=== PATIENT | female | born 1945 | race Caucasian/White ===

== ENCOUNTER 2017-07-18 20:43 | Observation (INO) ==
--- NOTE | 2017-07-18 20:53 | Emergency Department Note ---
Disposition Clinical Impression: Dehydration, Cellulitis of right leg, Frequent falls, Closed fracture of phalanx of right great toe Disposition: Admitted As Inpatient Condition: Good Referrals: Macrina Pacheco DO [Non-Partnered Physician] - Forms: ED Satisfaction Letter Time of Disposition: 23:41 Lower Extremity Injury HPI - General Chief Complaint: ED Extremity Injury, Lower Stated Complaint: right knee pain Time Seen by Provider: 07/18/17 20:45 Source: patient Mode of arrival: EMS Limitations: no limitations Nursing Notes Reviewed: Yes Vital Signs Reviewed: Yes - History of Present Illness HPI Narrative: 72-year-old female who presents via life squad after a fall at home. She states her right leg gave out on her and she fell and injured her right lower back, right knee, right ankle and foot. No head injury or loss consciousness. No neck pain. No chest or abdominal pain. Her daughter arrived and tells us that she has been more confused than usual the last several days. She tells her she fell twice on Sunday. She states she came over today and found her lying on the floor. She is not sure how long she had been there. 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 Mechanism of Injury: fall Context: walking Place: home Pain Severity: severe Improves with: immobilization Worsens with: weight bearing, movement, palpation Associated symptoms: Reports: unable to bear weight - Related Data Home Medications Medication Instructions Recorded Confirmed Aspirin [Lo-Dose Aspirin EC] 81 mg PO DAILY 06/04/17 07/18/17 BuPROPion SR (12 HR) [Wellbutrin 150 mg PO DAILY 06/04/17 07/18/17 SR] Cholecalciferol (Vitamin D3) 1,000 unit PO DAILY 06/04/17 07/18/17 [Vitamin D] Donepezil HCl [Aricept] 5 mg PO HS 06/04/17 07/18/17 Duloxetine HCl [Cymbalta] 60 mg PO DAILY 06/04/17 07/18/17 Furosemide [Lasix] 20 mg PO BID 06/04/17 07/18/17 Gabapentin [Neurontin] 800 mg PO TID 06/04/17 07/18/17 Lisinopril [Zestril] 20 mg PO DAILY 06/04/17 07/18/17 Metoprolol [Lopressor] 25 mg PO BID 06/04/17 07/18/17 OxyCODONE ER (12 HR) [OxyCONTIN] 30 mg PO Q12HR 06/04/17 07/18/17 OxyCODONE/APAP 10/325 [Percocet 1 each PO Q6HR PRN 06/04/17 07/18/17 10/325 MG] Ranitidine HCl [Acid Machinist Mechanic] 150 mg PO BID 06/04/17 07/18/17 Vitamin B Complex [B Complex] 1 each PO DAILY 06/04/17 07/18/17 rOPINIRole [Requip] 1 mg PO HS 06/04/17 07/18/17 Allergies Allergy/AdvReac Type Severity Reaction Status Date / Time pentazocine [From Talalexa] Allergy Vomiting Verified 06/04/17 15:33 All systems ED: reviewed and negative except as stated. Cardiovascular: Denies: chest pain Respiratory: Denies: dyspnea Gastrointestinal: Denies: abdominal pain Musculoskeletal: Reports: as per HPI (Right hip knee ankle and foot pain), back pain. 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 Absent: tenderness - Chest Chest inspection: Present: normal inspection, symmetric chest wall rise - Respiratory Respiratory exam: Present: normal lung sounds bilaterally. Absent: respiratory distress, wheezes - Cardiovascular Cardiovascular exam: Present: regular rate, normal rhythm, normal heart sounds - Abdominal Exam Abdominal exam: Present: soft, Non-Tender, other (Obese) - Extremities Exam Extremities exam: Present: other (Tenderness over right lateral hip, no rotation or shortening of the leg. Range of motion is limited secondary to pain. Tenderness over the anterior right knee. No effusion swelling or bruising. Limited range of motion secondary to pain. Some diffuse right ankle pain with movement, no obvious swelling or bruising. There is moderate swelling bruising and tenderness at the area of the first metatarsal phalangeal joint of the right great toe.) - Back Exam Back exam: Present: tenderness. Absent: CVA tenderness (R), CVA tenderness (L) (Lumbar diffuse) - Neurological Exam Neurological exam: Present: alert, oriented X3, CN II-XII intact. Absent: motor sensory deficit - Psychiatric Psychiatric exam: Present: normal affect, normal mood - Skin Skin exam: Present: warm, dry, intact, erythema (Mild erythema and increased warmth of the distal one third of the right lower leg extending onto the dorsum of the right foot. No open wound.), other (Bruising right foot.) Course - Reevaluation(s) Reevaluation #1: Discussed with Dr. Bolton. Accepted for observation admission. Time: 23:42 Vital Signs Temperature 98.3 F 07/18/17 20:49 Pulse Rate 50 07/18/17 20:49 Respiratory Rate 18 07/18/17 20:49 Blood Pressure 126/56 07/18/17 20:49 O2 Sat by Pulse Oximetry 99 07/18/17 20:49 Temperature 98.3 F 07/18/17 20:49 Pulse Rate 79 07/18/17 23:11 Respiratory Rate 18 07/18/17 23:11 Blood Pressure 127/57 07/18/17 23:11 O2 Sat by Pulse Oximetry 99 07/18/17 23:11 Oxygen Delivery Oxygen Delivery Nasal Cannula Extremity Injury, Lower - MDM Narrative Medical decision making narrative: Differential includes but is not limited to lumbar strain, lumbar compression fracture, right hip contusion, right hip fracture, right knee sprain, right knee fracture, internal derangement right knee, right ankle sprain, right ankle fracture, right foot fracture. On review her old labs her BUN/creatinine are significantly elevated. Her blood pressure has been running in the 110-120 systolic range. Her potassium is mildly elevated. This may be contributing to her falls. She fallen 3 times in the last 3 days. Most recently today when her daughter found her on the floor. She does have some mild erythema of her right lower leg, this could be an early cellulitis. I am going to cover with antibiotics. IV hydration was initiated. No other fractures were found from the falls. She will need a PT OT consult as well. A postop she will be placed on a right foot. - Lab Data Lab results reviewed: Yes I reviewed the patient's lab results. Result diagrams: 07/18/17 21:26 07/18/17 21:26 Lab Results 07/18/17 07/18/17 07/18/17 Range/Units 21:26 21:26 21:26 WBC 4.9 (4.3-11.1) K/mcL RBC 3.16 L (3.82-4.97) M/mcL Hgb 9.1 L (11.5-15.4) g/dL Hct 29.6 L (35.3-44.9) % MCV 93.7 (83.0-100.0) fL MCH 28.8 (28.0-33.3) pg MCHC 30.7 L (31.6-35.5) g/dL RDW 13.4 (11.5-14.5) % Plt Count 230 (140-400) K/mcL MPV 9.4 (9.4-12.4) fL Immature Gran % 0.6 (0-4) % Seg Neutrophils % 67.3 % Lymphocytes % 17.2 % Monocytes % 10.7 % Eosinophils % 3.8 % Basophils % 0.4 % Neutrophils # 3.3 (1.6-8.9) K/mcL Lymphocytes # 0.9 (0.6-4.6) K/mcL Monocytes # 0.5 (0.0-1.3) K/mcL Eosinophils # 0.2 (0.0-0.6) K/mcL Basophils # 0.0 (0.0-0.2) K/mcL Sodium 137 (136-145) mEq/L Potassium 5.4 H (3.5-4.5) mEq/L Chloride 99 (98-109) mEq/L Carbon Dioxide 32 H (19-29) mEq/L BUN 33 H (7-20) mg/dL Creatinine 1.50 H (0.57-1.11) mg/dL Est GFR ( Amer) 41 L (> 60) Est GFR (Non-Af Amer) 34 L (> 60) BUN/Creatinine Ratio 22 (6-26) Glucose 121 H (70-99) mg/dL Calculated Osmolality 293 (280-300) Calcium 9.0 (8.6-10.8) mg/dL Total Bilirubin 0.3 (0.2-1.2) mg/dL AST 20 (5-34) Units/L ALT 13 (0-55) Units/L Alkaline Phosphatase 85 (38-126) Units/L Creatine Kinase (29-168) Units/L Troponin I 0.01 (0-0.03) ng/mL Serum Total Protein 6.2 (6.0-8.3) g/dL Albumin 3.0 L (3.5-5.0) g/dL Globulin 3.2 (2.4-3.5) g/dL Albumin/Globulin Ratio 0.9 L (1.1-2.2) Urine Color (Yellow) Urine Clarity (Clear) Urine pH (5.0-8.0) pH Units Ur Specific [place] (1.010-1.025) Urine Protein (Neg-Trace) mg/dL Urine Glucose (UA) (Normal) mg/dL Urine Ketones (Negative) mg/dL Urine Blood (Negative) Urine Nitrite (Negative) Urine Bilirubin (Negative) Urine Urobilinogen (Normal) mg/dL Ur Leukocyte Esterase (Negative) Ur Culture Indicated? (NO) 07/18/17 07/18/17 Range/Units 21:26 23:21 WBC (4.3-11.1) K/mcL RBC (3.82-4.97) M/mcL Hgb (11.5-15.4) g/dL Hct (35.3-44.9) % MCV (83.0-100.0) fL MCH (28.0-33.3) pg MCHC (31.6-35.5) g/dL RDW (11.5-14.5) % Plt Count (140-400) K/mcL MPV (9.4-12.4) fL Immature Gran % (0-4) % Seg Neutrophils % % Lymphocytes % % Monocytes % % Eosinophils % % Basophils % % Neutrophils # (1.6-8.9) K/mcL Lymphocytes # (0.6-4.6) K/mcL Monocytes # (0.0-1.3) K/mcL Eosinophils # (0.0-0.6) K/mcL Basophils # (0.0-0.2) K/mcL Sodium (136-145) mEq/L Potassium (3.5-4.5) mEq/L Chloride (98-109) mEq/L Carbon Dioxide (19-29) mEq/L BUN (7-20) mg/dL Creatinine (0.57-1.11) mg/dL Est GFR ( Amer) (> 60) Est GFR (Non-Af Amer) (> 60) BUN/Creatinine Ratio (6-26) Glucose (70-99) mg/dL Calculated Osmolality (280-300) Calcium (8.6-10.8) mg/dL Total Bilirubin (0.2-1.2) mg/dL AST (5-34) Units/L ALT (0-55) Units/L Alkaline Phosphatase (38-126) Units/L Creatine Kinase 184 H (29-168) Units/L Troponin I (0-0.03) ng/mL Serum Total Protein (6.0-8.3) g/dL Albumin (3.5-5.0) g/dL Globulin (2.4-3.5) g/dL Albumin/Globulin Ratio (1.1-2.2) Urine Color Yellow (Yellow) Urine Clarity Clear (Clear) Urine pH 5.5 (5.0-8.0) pH Units Ur Specific [place] 1.010 (1.010-1.025) Urine Protein Negative (Neg-Trace) mg/dL Urine Glucose (UA) Normal (Normal) mg/dL Urine Ketones Negative (Negative) mg/dL Urine Blood Negative (Negative) Urine Nitrite Negative (Negative) Urine Bilirubin Negative (Negative) Urine Urobilinogen Normal (Normal) mg/dL Ur Leukocyte Esterase Negative (Negative) Ur Culture Indicated? NO (NO) - Radiology Data Radiology results reviewed: Yes I reviewed the patient's radiology results. Impressions Ankle X-Ray 07/18/17 20:49 IMPRESSION: Fracture of the right big toe. D/ / Miko Hernandez MD / Miko Hernandez MD Interpreting Provider: Miko Hernandez MD Foot X-Ray 07/18/17 20:49 IMPRESSION: Fracture of the right big toe. D/ / Miko Hernandez MD / Miko Hernandez MD Interpreting Provider: Miko Hernandez MD Hip X-Ray 07/18/17 20:49 IMPRESSION: Fracture of the right big toe. D/ / Miko Hernandez MD / Miko Hernandez MD Interpreting Provider: Miko Hernandez MD Knee X-Ray 07/18/17 20:49 IMPRESSION: Fracture of the right big toe. D/ / Miko Hernandez MD / Miko Hernandez MD Interpreting Provider: Miko Hernandez MD Lumbar Spine CT 07/18/17 20:49 IMPRESSION: Spondylosis with no definite fracture. D/ / Brent Cisneros MD / Brent Cisneros MD Interpreting Provider: Brent Cisneros MD Head CT 07/18/17 21:01 IMPRESSION: Small vessel chronic ischemic changes without acute hemorrhage or evidence for acute ischemia. D/ / Brent Cisneros MD / Brent Cisneros MD Interpreting Provider: Brent Cisneros MD Chest X-Ray 07/18/17 21:02 IMPRESSION: No definite acute infiltrate is identified. However, there is asymmetric hyperlucency within the right lung. This may be secondary to mucous plugging on the left. However, neoplasm centrally also is considered. Chest CT is recommended for further evaluation. D/ / Jayden Marks MD / Jayden Marks MD Interpreting Provider: Jayden Marks MD - EKG Data EKG attestation: Yes I reviewed and interpreted this EKG. EKG results narrative: Sinus rhythm, rate of 75, baseline artifact, nonspecific ST-T changes. Rhythm strip shows a sinus rhythm with rate of 75, VT interval 195 ms, QRS 93 ms with no other ectopy as interpreted by me. No old EKG available for comparison.
[2017-07-18 21:34] LABS: Basophils % 0.4 %; Eosinophils # 0.2 K/mcL (0.0-0.6); Eosinophils % 3.8 %; Hematocrit 29.6 % (35.3-44.9); Hemoglobin 9.1 g/dL (11.5-15.4); Immature Granulocytes % 0.6 % (0-4); Lymphocytes # 0.9 K/mcL (0.6-4.6); Lymphocytes % 17.2 %; Mean Corpuscular HGB Conc 30.7 g/dL (31.6-35.5); Mean Corpuscular Hemoglobin 28.8 pg (28.0-33.3); Mean Corpuscular Volume 93.7 fL (83.0-100.0); Mean Platelet Volume 9.4 fL (9.4-12.4); Monocytes # 0.5 K/mcL (0.0-1.3); Monocytes % 10.7 %; Neutrophils # 3.3 K/mcL (1.6-8.9); Platelet Count 230 K/mcL (140-400); Red Blood Count 3.16 M/mcL (3.82-4.97); Red Cell Distribution Width 13.4 % (11.5-14.5); Segmented Neutrophils % 67.3 %
[2017-07-18 21:52] LABS: Albumin/Globulin Ratio 0.9 (1.1-2.2); Bilirubin,Total 0.3 mg/dL (0.2-1.2); Globulin 3.2 g/dL (2.4-3.5); Potassium 5.4 mEq/L (3.5-4.5); Total Protein 6.2 g/dL (6.0-8.3)
[2017-07-18] MEDS ORDERED: 0.9 % Sodium Chloride 500 ML IVC ONE (23:13)
[2017-07-18 23:23] LABS: Bilirubin,Urine Negative (Negative); Blood,Urine Negative (Negative); Clarity,Urine Clear (Clear); Color,Urine Yellow (Yellow); Glucose,Urine (UA) Normal (Normal); Ketones,Urine Negative (Negative); Leukocyte Esterase,Urine Negative (Negative); Nitrite,Urine Negative (Negative); PH,Urine 5.5 pH Units (5.0-8.0); Protein,Urine Negative (Neg-Trace); Urobilinogen,Urine Normal (Normal)
[2017-07-18] MEDS: 0.9 % Sodium Chloride 1,000 ML IVC SCH (23:37)
[2017-07-18] MEDS ORDERED: Vancomycin 1,000 MG in D5% in Water 250 ML IVPB ONE (23:43)
[2017-07-19] MEDS ORDERED: ceFAZolin 1,000 MG in Water for inj. (sterile) 10 ML IVP SCH
[2017-07-19] MEDS ORDERED: 0.9 % Sodium Chloride 1,000 ML IVC SCH (00:03)
[2017-07-19] MEDS ORDERED: Naloxone 0.4 MG/ML INJ IVP PRN (00:03)
[2017-07-19] MEDS: 0.9 % Sodium Chloride 1,000 ML IVC SCH ×3 (00:51→09:59)
[2017-07-19] MEDS: ceFAZolin 1,000 MG in D5% in Water (Mini-Bag+) 100 ML IVPB SCH ×3 (01:15→13:39)
[2017-07-19] MEDS: *HR* OxyCODONE/APAP 10/325 TABLET PO PRN ×4 (01:21→20:20)
[2017-07-19] MEDS: *HR* Enoxaparin 40 MG/0.4 ML SYRINGE SQ SCH (05:13)
[2017-07-19] MEDS: *HR* OxyCODONE ER (12 HR) 10 MG TABLET PO SCH ×2 (05:13→17:59)
[2017-07-19] MEDS ORDERED: Famotidine 20 MG TABLET PO SCH (07:30)
[2017-07-19] MEDS: BuPROPion SR (12 HR) 150 MG TABLET PO SCH (08:09)
[2017-07-19] MEDS: Vitamin B Complex/Vit C/Vit E 1 EACH TABLET PO SCH (08:10)
[2017-07-19] MEDS: Cholecalciferol (D-3) 1,000 UNIT TABLET PO SCH (08:10)
[2017-07-19] MEDS ORDERED: ceFAZolin 1,000 MG in D5% in Water (Mini-Bag+) 100 ML IVPB SCH (08:15)
[2017-07-19] MEDS ORDERED: Aspirin Enteric Coated 81 MG Tablet PO SCH (09:00)
[2017-07-19] MEDS ORDERED: Gabapentin 400 MG CAPSULE PO SCH (09:00)
[2017-07-19 10:34] LABS: Basophils % 0.2 %; Eosinophils # 0.2 K/mcL (0.0-0.6); Eosinophils % 4.7 %; Hematocrit 31.3 % (35.3-44.9); Hemoglobin 9.6 g/dL (11.5-15.4); Lymphocytes % 24.5 %; Mean Corpuscular HGB Conc 30.7 g/dL (31.6-35.5); Mean Corpuscular Hemoglobin 28.5 pg (28.0-33.3); Mean Corpuscular Volume 92.9 fL (83.0-100.0); Mean Platelet Volume 10.3 fL (9.4-12.4); Monocytes # 0.5 K/mcL (0.0-1.3); Monocytes % 11.3 %; Neutrophils # 2.5 K/mcL (1.6-8.9); Platelet Count 234 K/mcL (140-400); Red Blood Count 3.37 M/mcL (3.82-4.97); Red Cell Distribution Width 13.4 % (11.5-14.5); Segmented Neutrophils % 59.3 %
[2017-07-19 10:49] LABS: BUN/Creatinine Ratio 27 (6-26); Blood Urea Nitrogen 22 mg/dL (7-20); Calcium 9.2 mg/dL (8.6-10.8); Carbon Dioxide 28 mEq/L (19-29); Chloride 104 mEq/L (98-109); Glucose 91 mg/dL (70-99); Osmolality,Calculated 293 (280-300); Potassium 4.9 mEq/L (3.5-4.5); Sodium 140 mEq/L (136-145); eGFR For African Americans > 60 (> 60); eGFR For Non-African Americans > 60 (> 60)
--- NOTE | 2017-07-19 12:28 | Internal Med History&Physical ---
Date of Encounter: 07/19/17 Time of Encounter: 11:55 Assessment and Plan (1) Dehydration Current visit: Yes Status: Acute Suspect secondary to diuretic use. Lasix has been held and IV fluids will be given. (2) Anemia Current visit: Yes Status: Acute Will order anemia testing Qualifiers: Anemia type: unspecified type Qualified Code(s): D64.9 - Anemia, unspecified (3) Cellulitis of right leg Current visit: Yes Status: Acute Possible venous stasis instead of cellulitis. Antibiotics were ordered through emergency room. I will reassess in a.m. (4) Frequent falls Current visit: Yes Status: Acute She will have PT and OT evaluation. (5) Closed fracture of phalanx of right great toe Current visit: Yes Status: Acute We will give analgesics. Qualifiers: Encounter type: initial encounter Phalanx: proximal Fracture alignment: nondisplaced Qualified Code(s): S92.414A - Nondisplaced fracture of proximal phalanx of right great toe, initial encounter for closed fracture Internal Medicine - H&P: HPI Chief complaint: Fall and toe fracture Admitted From: Emergency Dept Plans for Post Hospital Care: Home History of present illness: Ms. Mclean is a 72 year old female who came to emergency room after she sustained a fall while walking at home. She states her right leg gave out and she fell to the floor. There was no head trauma or loss of consciousness. She was evaluated in emergency room found to have a right great toe fracture,anemia and azotemia. She was admitted to [facility] for ongoing care needs. She reports she has had multiple falls at home over the preceding months. She has been told to use a walker but does not use it regularly. She has not fallen when she does use the walker. Her musk skeletal history is significant for DJD. She reports having 10 back surgeries and a foot surgery. She denies known gout or other bone joint or muscle disorders. Past Med Surg Social Fam HX - Past Medical History Medical history: asthma, COPD, coronary artery disease, GERD, hyperlipidemia, hypertension, other (Chronic pain) Psychiatric history: depression - Past Surgical History Surgical History: angioplasty/stent, appendectomy, cancer surgery, hysterectomy , orthopedic, other (Foot and back surgeries) - Social History Smoking Status: Former smoker Smokeless Tobacco Status: No Alcohol use: none Drug use: none Internal Medicine - H&P: Meds Aspirin [Lo-Dose Aspirin EC] 81 mg PO DAILY 06/04/17 [History] BuPROPion SR (12 HR) [Wellbutrin SR] 150 mg PO DAILY 06/04/17 [History] Cholecalciferol (Vitamin D3) [Vitamin D] 1,000 unit PO DAILY 06/04/17 [History] Donepezil HCl [Aricept] 5 mg PO HS 06/04/17 [History] Duloxetine HCl [Cymbalta] 60 mg PO DAILY 06/04/17 [History] Furosemide [Lasix] 20 mg PO BID 06/04/17 [History] Gabapentin [Neurontin] 800 mg PO TID 06/04/17 [History] Lisinopril [Zestril] 20 mg PO DAILY 06/04/17 [History] Metoprolol [Lopressor] 25 mg PO BID 06/04/17 [History] OxyCODONE ER (12 HR) [OxyCONTIN] 30 mg PO Q12HR 06/04/17 [History] OxyCODONE/APAP 10/325 [Percocet 10/325 MG] 1 each PO Q6HR PRN 06/04/17 [History] Ranitidine HCl [Acid Creel Hand] 150 mg PO BID 06/04/17 [History] Vitamin B Complex [B Complex] 1 each PO DAILY 06/04/17 [History] rOPINIRole [Requip] 1 mg PO HS 06/04/17 [History] 3 Allergy/AdvReac Type Severity Reaction Status Date / Time pentazocine [From Efarín] Allergy Vomiting Verified 06/04/17 15:33 All Systems PM: A 10-system review of systems was performed and is negative for pertinent findings except as documented above in the HPI. Review of systems: Gen.: She states her weight has been stable past few months Cardiovascular: She has history of hypertension but denies AK heart failure DVT or pulmonary embolus. She states she has an occasional chest pain at rest and walking but it is not predictable. She reports she has had a heart valve surgery in the past but does not know details. Respiratory: She smoked from age [age] up to 2 packs per day. She has a diagnosis of COPD and wears oxygen 24/7 at home. She denies testing for ALEXIS GI: She denies disorders of her liver gallbladder or exocrine pancreas : She has had urinary tract infections in the past. She denies other kidney or bladder disorders Neurologic: She is been diagnosed with early dementia. She has neuropathy of uncertain etiology. She denies large distribution strokes or seizures. Endocrine: She denies diabetes or thyroid disease but has history of hyperlipidemia. She does not use medication at this time. She has restless leg syndrome. Hematology/oncology: She has had anemia in the past. She had hysterectomy for uterine cancer in the past which was curative. She denies other internal malignancies Psychiatric: She has depression but denies anxiety or other mental health issues Musk skeletal: As per history of present illness - Constitutional Vitals: Temp Pulse Resp BP Pulse Ox 98.5 F 64 18 105/67 96 07/19/17 10:00 07/19/17 10:00 07/19/17 10:00 07/19/17 10:00 07/19/17 10:00 Exam: Gen.: She is well-developed overweight female lying in bed who appears in no acute distress at present time HEENT: Head is atraumatic and normocephalic. Eyes: EOMI. There is no scleral icterus. She is wearing dark glasses stating she had cataract surgery a few days ago and the light hurts her eyes. Mouth: Mucosa is moist. Neck: Supple and nontender. There is no thyromegaly or adenopathy noted. Heart: Regular without murmurs gallops or ectopics Lungs: No wheezes or crackles are heard. Abdomen: Soft and nontender. No masses or guarding noted. Activities: She has 1+ edema of the lower anterior shins and dorsum of the feet bilaterally. She has ecchymosis of the right great toe area. Dorsalis pedis and posttibial pulses are nonpalpable. Neurologic: Mental status: She is talkative and seems to be a reliable historian. Cranial nerves: Smile is symmetric. Forehead wrinkles bilaterally. Tongue protrudes midline. EOMI. Motor: There is no pronator drift. Cerebellar: Finger to nose is intact bilaterally. Skin: Warm and dry Internal Med - H&P Results - Labs CBC & Chem 7: 07/19/17 10:18 07/19/17 10:18 Labs: Short CBC 07/19/17 Range/Units 10:18 WBC 4.2 L (4.3-11.1) K/mcL Hgb 9.6 L (11.5-15.4) g/dL Hct 31.3 L (35.3-44.9) % Plt Count 234 (140-400) K/mcL Neutrophils # 2.5 (1.6-8.9) K/mcL BMP 07/19/17 10:18 Sodium 140 Potassium 4.9 H Chloride 104 Carbon Dioxide 28 BUN 22 H D Creatinine 0.83 Glucose 91 Calcium 9.2
[2017-07-19 14:56] LABS: Folate 12.5 ng/mL (3.0-16.0)
[2017-07-19] MEDS: Famotidine 20 MG TABLET PO SCH (15:29)
[2017-07-19] MEDS: Gabapentin 300 MG CAPSULE PO SCH ×2 (15:29→20:18)
[2017-07-19] MEDS: rOPINIRole 1 MG TABLET PO SCH (20:17)
[2017-07-20] MEDS: ceFAZolin 1,000 MG in D5% in Water (Mini-Bag+) 100 ML IVPB SCH ×2 (00:23→11:18)
[2017-07-20] MEDS: *HR* OxyCODONE/APAP 10/325 TABLET PO PRN ×3 (03:21→21:54)
[2017-07-20] MEDS: *HR* Enoxaparin 40 MG/0.4 ML SYRINGE SQ SCH (06:03)
[2017-07-20] MEDS: *HR* OxyCODONE ER (12 HR) 10 MG TABLET PO SCH ×2 (06:04→17:22)
[2017-07-20 07:19] LABS: Basophils % 0.3 %; Eosinophils # 0.2 K/mcL (0.0-0.6); Eosinophils % 5.5 %; Hematocrit 28.8 % (35.3-44.9); Hemoglobin 8.8 g/dL (11.5-15.4); Immature Granulocytes % 0.3 % (0-4); Lymphocytes # 0.9 K/mcL (0.6-4.6); Lymphocytes % 28.4 %; Mean Corpuscular HGB Conc 30.6 g/dL (31.6-35.5); Mean Corpuscular Hemoglobin 28.5 pg (28.0-33.3); Mean Corpuscular Volume 93.2 fL (83.0-100.0); Mean Platelet Volume 10.1 fL (9.4-12.4); Monocytes # 0.4 K/mcL (0.0-1.3); Monocytes % 11.9 %; Neutrophils # 1.8 K/mcL (1.6-8.9); Platelet Count 224 K/mcL (140-400); Red Blood Count 3.09 M/mcL (3.82-4.97); Red Cell Distribution Width 13.3 % (11.5-14.5); Segmented Neutrophils % 53.6 %
[2017-07-20] MEDS: Cholecalciferol (D-3) 1,000 UNIT TABLET PO SCH (08:16)
[2017-07-20] MEDS: Famotidine 20 MG TABLET PO SCH ×2 (08:16→17:22)
[2017-07-20] MEDS: Vitamin B Complex/Vit C/Vit E 1 EACH TABLET PO SCH (08:17)
[2017-07-20] MEDS: Gabapentin 300 MG CAPSULE PO SCH ×3 (08:17→21:50)
[2017-07-20 08:31] LABS: BUN/Creatinine Ratio 20 (6-26); Blood Urea Nitrogen 14 mg/dL (7-20); Calcium 9.2 mg/dL (8.6-10.8); Carbon Dioxide 27 mEq/L (19-29); Chloride 105 mEq/L (98-109); Glucose 91 mg/dL (70-99); Osmolality,Calculated 286 (280-300); Potassium 4.8 mEq/L (3.5-4.5); Sodium 138 mEq/L (136-145); eGFR For African Americans > 60 (> 60); eGFR For Non-African Americans > 60 (> 60)
--- NOTE | 2017-07-20 09:31 | Electrocardiograph Report ---
[address] [id number] Test Date: 2017-07-18 Pat Name: Krishan Mclean Department: [id number] Room: [facility] Gender: F Solution Designer: Mica : 1945 Requested By: Felice Garza Order Number: [id number] Reading MD: Stormy Levin Measurements Intervals [place] Rate: 75 P: 79 LA: 195 QRS: 46 QRSD: 93 T: 56 QT: 334 QTc: 364 Interpretive Statements SINUS RHYTHM ARTIFACT LIMITS INTERPRETATION Electronically Signed On 07-20-2017 9:29:44 EST by Stormy Levin
[2017-07-20] MEDS: BuPROPion SR (12 HR) 150 MG TABLET PO SCH (11:10)
--- NOTE | 2017-07-20 12:24 | Internal Med Progress Note ---
Date of Encounter: 07/20/17 Time of Encounter: 12:15 - Assessment and plan (1) Dehydration Current Visit: Yes Status: Acute Assessment and plan: July 20. Resolved. We will discontinue IV fluids. Will give low dose Bumex for edema. Anticipate discharge home tomorrow. (2) Anemia Current Visit: Yes Status: Acute Assessment and plan: July 20. Anemia testing showed iron 34, transferrin saturation 8%, transferrin 287, ferritin 30, B12 340, and folate 12.5. Will start ferrous sulfate with vitamin C. Qualifiers: Anemia type: unspecified type Qualified Code(s): D64.9 - Anemia, unspecified (3) Cellulitis of right leg Current Visit: Yes Status: Acute Assessment and plan: July 20. The erythema has resolved. I suspect it was more venous stasis than cellulitis. We will discontinue antibiotics. (4) Frequent falls Current Visit: Yes Status: Acute Assessment and plan: July 20. Continue PT and OT evaluation. (5) Closed fracture of phalanx of right great toe Current Visit: Yes Status: Acute Assessment and plan: July 20. Continue analgesics. Qualifiers: Encounter type: initial encounter Phalanx: proximal Fracture alignment: nondisplaced Qualified Code(s): S92.414A - Nondisplaced fracture of proximal phalanx of right great toe, initial encounter for closed fracture (6) Elevated brain natriuretic peptide (BNP) level Current Visit: Yes Status: Acute Assessment and plan: July 20. Continue Lopressor and start Bumex. - Subjective Interval history: July 20. She has no new complaints and feels better. Reports having tremors earlier this morning but they have resolved. - Constitutional Vitals: Temp Pulse Resp BP Pulse Ox 97.9 F 73 18 133/65 98 07/20/17 07:09 07/20/17 07:09 07/20/17 07:09 07/20/17 07:09 07/20/17 07:09 Exam: She is sitting in a chair at bedside resting comfortably. Her affect is bright and cheerful. There is no residual erythema for lower legs. She has 1-2+ edema dorsum of the feet and lower anterior shins. I reviewed her medications and lab results. Internal Medicine: Result - Labs CBC & Chem 7: 07/20/17 07:00 07/20/17 07:00 Labs: Short CBC 07/20/17 Range/Units 07:00 WBC 3.3 L (4.3-11.1) K/mcL Hgb 8.8 L (11.5-15.4) g/dL Hct 28.8 L (35.3-44.9) % Plt Count 224 (140-400) K/mcL Neutrophils # 1.8 (1.6-8.9) K/mcL BMP 07/20/17 07:00 Sodium 138 Potassium 4.8 H Chloride 105 Carbon Dioxide 27 BUN 14 Creatinine 0.71 Glucose 91 Calcium 9.2 Consult Discharge Plan - Plan Referrals: NONE,PCP [Primary Care Provider] - 1 week
[2017-07-20] MEDS: Bumetanide 1 MG TABLET PO SCH (12:54)
[2017-07-20] MEDS: rOPINIRole 1 MG TABLET PO SCH (21:50)
[2017-07-21] MEDS: *HR* OxyCODONE/APAP 10/325 TABLET PO PRN (04:14)
[2017-07-21] MEDS: *HR* OxyCODONE ER (12 HR) 10 MG TABLET PO SCH (05:47)
[2017-07-21] MEDS: *HR* Enoxaparin 40 MG/0.4 ML SYRINGE SQ SCH (05:47)
[2017-07-21] MEDS ORDERED: Ascorbic Acid 500 MG TABLET PO SCH (06:30)
[2017-07-21 06:54] VITALS: BP 117/66
[2017-07-21] MEDS: Bumetanide 1 MG TABLET PO SCH (08:41)
[2017-07-21] MEDS: Gabapentin 300 MG CAPSULE PO SCH (08:41)
[2017-07-21] MEDS: Famotidine 20 MG TABLET PO SCH (08:41)
[2017-07-21] MEDS: Vitamin B Complex/Vit C/Vit E 1 EACH TABLET PO SCH (08:41)
[2017-07-21] MEDS: BuPROPion SR (12 HR) 150 MG TABLET PO SCH (08:42)
[2017-07-21] MEDS: Cholecalciferol (D-3) 1,000 UNIT TABLET PO SCH (08:42)
--- NOTE | 2017-07-21 08:50 | Discharge Summary ---
Date of Encounter: 07/21/17 Time of Encounter: 08:35 - Discharge Diagnosis (1) Dehydration Priority: Primary Status: Resolved (2) Anemia Priority: Secondary Status: Acute Qualifiers: Anemia type: iron deficiency Iron deficiency anemia type: unspecified iron deficiency Qualified Code(s): D50.9 - Iron deficiency anemia, unspecified (3) Cellulitis of right leg Priority: Secondary Status: Resolved (4) Frequent falls Priority: Secondary Status: Acute (5) Closed fracture of phalanx of right great toe Priority: Secondary Status: Acute Qualifiers: Encounter type: initial encounter Phalanx: proximal Fracture alignment: nondisplaced Qualified Code(s): S92.414A - Nondisplaced fracture of proximal phalanx of right great toe, initial encounter for closed fracture (6) Elevated brain natriuretic peptide (BNP) level Priority: Secondary Status: Acute - Discharge Medications Prescriptions: Ascorbic Acid [Vitamin C] 500 mg PO DAILY@0630 #30 tablet Bumetanide [Bumex] 1 mg PO DAILY #30 tablet Ferrous Sulfate 325 mg PO DAILY@0630 #30 tablet Home Medications: BuPROPion SR (12 HR) [Wellbutrin SR] 150 mg PO DAILY 06/04/17 [History] Cholecalciferol (Vitamin D3) [Vitamin D3] 1,000 unit PO DAILY 06/04/17 [History] Donepezil HCl [Aricept] 5 mg PO HS 06/04/17 [History] Duloxetine HCl [Cymbalta] 60 mg PO DAILY 06/04/17 [History] Metoprolol [Lopressor] 25 mg PO BID 06/04/17 [History] OxyCODONE ER (12 HR) [OxyCONTIN] 30 mg PO Q12HR 06/04/17 [History] OxyCODONE/APAP 10/325 [Percocet 10/325 MG] 1 each PO Q6HR PRN 06/04/17 [History] Ranitidine HCl [Acid Trench Pipe Layer Helper] 150 mg PO BID 06/04/17 [History] Vitamin B Complex [B Complex] 1 each PO DAILY 06/04/17 [History] rOPINIRole [Requip] 1 mg PO HS 06/04/17 [History] Ascorbic Acid [Vitamin C] 500 mg PO DAILY@0630 #30 tablet 07/21/17 [Rx] Aspirin [Lo-Dose Aspirin EC] 81 mg PO Q48H #0 07/21/17 [Rx] Bumetanide [Bumex] 1 mg PO DAILY #30 tablet 07/21/17 [Rx] Ferrous Sulfate 325 mg PO DAILY@0630 #30 tablet 07/21/17 [Rx] Gabapentin [Neurontin] 800 mg PO BID #0 07/21/17 [Rx] Allergies/Adverse Reactions: 3 Allergy/AdvReac Type Severity Reaction Status Date / Time pentazocine [From Talwin] Allergy Vomiting Verified 06/04/17 15:33 Date of admission: 07/18/17 23:52 Primary care physician: Macrina Pacheco D.O. Consults: 07/19/17 10:32 Consult to Occupational Therapy [CONS] Routine Comment: Evaluate, develop and implement POC Reason for Consult: weakness - Patient Status Disposition: Home, Self-Care Condition: Good Functional capacity at discharge: uses cane/walker Overall status at discharge: patient is progressing back to baseline - Discharge Instructions Follow Up With: Macrina Pacheco DO [Non-Partnered Physician] - 1 week - Diet and Activity Activity: ambulate only with your walker, resume usual activities as tolerated Diet: advance to your usual diet Hospital course: Ms. Mclean is a 72 year old female who came to emergency room after she sustained a fall while walking at home. She states her right leg gave out and she fell to the floor. There was no head trauma or loss of consciousness. She was evaluated in emergency room found to have a right great toe fracture,anemia and azotemia. She was admitted to [facility] floor for ongoing care needs. Initial orders written by the emergency room physician. I saw her on July 19 and performed the history and physical. Her diuretics and ACEI were held. She was given IV fluids. Azotemia resolved with BUN and creatinine decreasing to 14 and 0.71 respectively by July 20. Her potassium improved to 4.8. She will remain off ACEI at discharge. I will change her from Lasix to Bumex 1 mg daily to help with edema. Bn peptide returned elevated at 410. Her PCP can monitor labs as needed. Anemia testing showed iron 34, transferrin saturation 8%, transferrin 287, ferritin 30, B12 340, and folate 12.5. Her aspirin dose was decreased to 81 mg every other day. She will be started on ferrous sulfate with vitamin C at discharge. She will be discharged home today and follow with her PCP Dr. Macrina Pacheco within 1 week. - Time Spent with Patient Total time spent providing and/or coordinating discharge services: - Constitutional Vitals: Temp Pulse Resp BP Pulse Ox 98.5 F 75 17 117/66 99 07/21/17 06:53 07/21/17 06:53 07/21/17 06:53 07/21/17 06:53 07/21/17 06:53
== END 2017-07-21 11:25 | disposition home or self-care (01) ==
LOC: EMEROOPIK 20:43 → INPPIK 20:43
PROVIDERS: ADMIT Internal Medicine; ATTEND Internal Medicine

== ENCOUNTER 2018-12-30 15:50 | Inpatient (IN) ==
--- NOTE | 2018-12-30 16:32 | Emergency Department Note ---
Disposition Clinical Impression: Cellulitis Qualifiers: Site of cellulitis: extremity Site of cellulitis of extremity: lower extremity Laterality: unspecified laterality Qualified Code(s): L03.119 - Cellulitis of unspecified part of limb Disposition: Admitted As Inpatient Condition: Fair Referrals: Macrina Pacheco DO [Primary Care Provider] - Forms: ED Satisfaction Letter, Work/School Release Time of Disposition: 19:15 General Adult HPI - General Chief complaint: ED General Medical Stated complaint: reddness to bilateral lower ext Time Seen by Provider: 12/30/18 16:00 Source: patient, family, EMS Mode of arrival: EMS Limitations: no limitations Nursing Notes Reviewed: Yes Vital Signs Reviewed: Yes - History of Present Illness HPI Narrative: Patient presents to the ED complaining of lower extremity redness, swelling and weeping. She states her legs have been red for at least a month or more but over the past few days they have become more swollen and began seeping clear liquid and they are more painful. She denies any fever or chills. No chest pain or shortness of breath beyond her mild dyspnea at baseline. She wears 3 L of oxygen at all times and has for several years. No nausea or vomiting. No other rashes or skin problems. History is notable for dementia, COPD, CAD, hypertension and high cholesterol. She lives with family. She does take a water pill. She is unsure of a history of CHF. Pain Scale: 7 - Related Data Home Medications Medication Instructions Recorded Confirmed Cholecalciferol (Vitamin D3) 1,000 unit PO DAILY 06/04/17 12/30/18 [Vitamin D3] Duloxetine HCl [Cymbalta] 60 mg PO DAILY 06/04/17 12/30/18 OxyCODONE/APAP 10/325 [Percocet 1 tab PO Q6HR PRN 06/04/17 03/20/18 10/325 MG] Ranitidine HCl [Acid Frame Hand] 150 mg PO BID 06/04/17 12/30/18 Atorvastatin Calcium [Lipitor] 20 mg PO HS 03/20/18 12/30/18 Gabapentin [Neurontin] 800 mg PO TID 03/20/18 12/30/18 NALOXONE 4 MG Nasal [place] [Narcan] 4 mg NS AD 03/20/18 12/30/18 Nitroglycerin [Nitrostat] 0.4 mg SL Q5M PRN MDD [id number] CALL 03/20/18 12/30/18 911 Nortriptyline HCl 75 mg PO DAILY 03/20/18 12/30/18 Omeprazole [PriLOSEC] 40 mg PO DAILY 03/20/18 12/30/18 Tizanidine HCl 4 mg PO Q8H 03/20/18 12/30/18 Docusate [Colace] 100 mg PO TID 12/30/18 12/30/18 Furosemide [Lasix] 20 mg PO BID 12/30/18 12/30/18 Memantine HCl 10 mg PO BID 12/30/18 12/30/18 Oxycodone HCl [Roxybond] 30 mg PO TID 12/30/18 12/30/18 Potassium Chloride [K-Tab ER] 10 meq PO 12/30/18 PredniSONE [Deltasone] 20 mg PO DAILY 12/30/18 12/30/18 Previous Rx's Medication Instructions Recorded Aspirin [Lo-Dose Aspirin EC] 81 mg PO Q48H #0 07/21/17 Allergies Allergy/AdvReac Type Severity Reaction Status Date / Time pentazocine [From Talwin] AdvReac Vomiting Verified 03/20/18 09:07 Constitutional: Denies: fever, chills, weakness, weight change Eyes: Denies: eye pain, eye discharge, vision change ENT ED: Denies: ear pain, throat pain, dental pain, hearing loss, epistaxis, congestion, dysphagia Cardiovascular: Reports: edema. Denies: chest pain, palpitations, dyspnea on exertion, syncope Respiratory: Reports: dyspnea (mild, chronic). Denies: cough, wheezes, hemoptysis, stridor Gastrointestinal: Denies: abdominal pain, nausea, vomiting, diarrhea, constipation, hematemesis, melena, hematochezia Genitourinary: Denies: dysuria, frequency, hematuria, discharge Musculoskeletal: Denies: back pain, neck pain, arthralgia, myalgia Integumentary: Denies: rash, abrasion, lesions Neurological: Denies: headache, weakness, numbness, paresthesias, confusion, abnormal gait, vertigo Psychiatric: Denies: anxiety, depression, suicidal thoughts, homicidal thoughts, auditory hallucinations, visual hallucinations Endocrine: Denies: fatigue Hematological/Lymphatic: Denies: easy bleeding, easy bruising Allergic/Immunologic: Denies: facial swelling, urticaria Past Medical History - Past Medical History Medical history: Reports: asthma, COPD, coronary artery disease, dementia, GERD, hyperlipidemia, hypertension, other Surgical history: Reports: angioplasty/stent, appendectomy, cancer surgery, hysterectomy, orthopedic, other Psychiatric history: Reports: 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 - Social History Smoking Status: Former smoker Smokeless Tobacco Status: No Alcohol use: Reports: none Drug use: Reports: none, unknown Physical Exam - General Limitations: no limitations General appearance: alert, in no apparent distress, obese - Head Head exam: atraumatic, normocephalic, normal inspection - Eye Eye exam: Present: normal appearance, PERRL, EOMI - ENT ENT exam: normal exam, normal oropharynx, mucous membranes moist - Neck Neck exam: Present: normal inspection, full ROM, trachea midline - Chest Chest inspection: Present: normal inspection, symmetric chest wall rise - Respiratory Respiratory exam: Present: normal lung sounds bilaterally - Cardiovascular Cardiovascular exam: Present: regular rate, normal rhythm, normal heart sounds - Abdominal Exam Abdominal exam: Present: soft, Non-Tender. Absent: tenderness, distention, guarding, rebound, rigidity - Extremities Exam Extremities exam: Present: normal inspection, full ROM, normal capillary refill. Absent: tenderness, pedal edema (2+ to knees) - Expanded Lower Extremity Exam Knee exam: Present: normal inspection, full ROM Lower leg exam: Present: tenderness, erythema (with seeping blisters on R) Ankle exam: Present: normal inspection, full ROM Foot/toe exam: Present: normal inspection, full ROM Neurovascular/Tendon exam: Absent: motor deficit, sensory deficit, tendon deficit - Back Exam Back exam: Present: normal inspection, full ROM. Absent: tenderness - Neurological Exam Neurological exam: Present: alert, oriented X3 - Psychiatric Psychiatric exam: Present: normal affect, normal mood - Skin Skin exam: Present: warm, dry, intact, normal color Course Course Narrative: His presents to the ED with worsening bilateral lower extremity swelling along with redness and weeping with a history of lower actually edema on diuretics, unclear history of CHF. On arrival she is afebrile, hemodynamic stable and nont oxic in appearance. Lower extremities are red and warm and weeping with pitting edema. Lungs are clear to auscultation with no crackles or wheezing. Will obtain laboratory studies in addition to chest x-ray to rule out component of CHF in addition to her cellulitis. - Reevaluation(s) Reevaluation #1: Chest x-ray did not show any evidence of CHF and lab work was unremarkable including a negative troponin and negative BNP. Discussed with patient admissi on for IV antibiotics for her cellulitis that she is in agreement. I spoke to the hospital some call, Dr. Bolton who has agreed to accept the patient. Vital Signs Temperature 97.2 F L 12/30/18 15:52 Pulse Rate 93 12/30/18 15:52 Respiratory Rate 17 12/30/18 15:52 Blood Pressure 110/89 12/30/18 15:52 O2 Sat by Pulse Oximetry 97 12/30/18 15:52 Temperature 97.2 F L 12/30/18 15:52 Pulse Rate 89 12/30/18 18:43 Respiratory Rate 15 12/30/18 18:43 Blood Pressure 130/62 12/30/18 18:43 O2 Sat by Pulse Oximetry 95 12/30/18 18:43 Oxygen Delivery Oxygen Delivery Nasal Cannula Medical Decision Making - Medical Records Medical records reviewed: Yes I reviewed the patient's medical records. - Lab Data Lab results reviewed: Yes I reviewed the patient's lab results. Result diagrams: 12/30/18 16:40 12/30/18 16:40 Lab Results 12/30/18 12/30/18 12/30/18 Range/Units 16:40 16:40 16:40 WBC 6.2 (4.3-11.1) K/mcL RBC 3.89 (3.82-4.97) M/mcL Hgb 9.6 L (11.5-15.4) g/dL Hct 32.3 L (35.3-44.9) % MCV 83.0 (83.0-100.0) fL MCH 24.7 L (28.0-33.3) pg MCHC 29.7 L (31.6-35.5) g/dL RDW 16.8 H (11.5-14.5) % Plt Count 347 (140-400) K/mcL MPV 10.7 (9.4-12.4) fL Immature Gran % 0.3 (0-4) % Seg Neutrophils % 65.5 % Lymphocytes % 22.4 % Monocytes % 8.6 % Eosinophils % 2.9 % Basophils % 0.3 % Neutrophils # 4.0 (1.6-8.9) K/mcL Lymphocytes # 1.4 (0.6-4.6) K/mcL Monocytes # 0.5 (0.0-1.3) K/mcL Eosinophils # 0.2 (0.0-0.6) K/mcL Basophils # 0.0 (0.0-0.2) K/mcL Platelet Estimate Normal (Normal) Anisocytosis 1+ A (Not Present) Sodium 135 L (136-145) mEq/L Potassium 4.2 (3.5-5.1) mEq/L Chloride 95 L (98-107) mEq/L Carbon Dioxide 36 H (23-29) mEq/L BUN 11 (8-23) mg/dL Creatinine 0.78 (0.60-1.20) mg/dL Est GFR ( Amer) > 60 (> 60) Est GFR (Non-Af Amer) > 60 (> 60) BUN/Creatinine Ratio 14 (6-26) Glucose 206 H (70-105) mg/dL Calculated Osmolality 285 (280-300) Lactic Acid 2.0 (0.5-2.2) mmol/L Calcium 9.0 (8.6-10.3) mg/dL Troponin I (< 0.04) ng/mL B-Natriuretic Peptide (Less than 100) pg/mL 12/30/18 12/30/18 Range/Units 16:40 16:40 WBC (4.3-11.1) K/mcL RBC (3.82-4.97) M/mcL Hgb (11.5-15.4) g/dL Hct (35.3-44.9) % MCV (83.0-100.0) fL MCH (28.0-33.3) pg MCHC (31.6-35.5) g/dL RDW (11.5-14.5) % Plt Count (140-400) K/mcL MPV (9.4-12.4) fL Immature Gran % (0-4) % Seg Neutrophils % % Lymphocytes % % Monocytes % % Eosinophils % % Basophils % % Neutrophils # (1.6-8.9) K/mcL Lymphocytes # (0.6-4.6) K/mcL Monocytes # (0.0-1.3) K/mcL Eosinophils # (0.0-0.6) K/mcL Basophils # (0.0-0.2) K/mcL Platelet Estimate (Normal) Anisocytosis (Not Present) Sodium (136-145) mEq/L Potassium (3.5-5.1) mEq/L Chloride (98-107) mEq/L Carbon Dioxide (23-29) mEq/L BUN (8-23) mg/dL Creatinine (0.60-1.20) mg/dL Est GFR ( Amer) (> 60) Est GFR (Non-Af Amer) (> 60) BUN/Creatinine Ratio (6-26) Glucose (70-105) mg/dL Calculated Osmolality (280-300) Lactic Acid (0.5-2.2) mmol/L Calcium (8.6-10.3) mg/dL Troponin I < 0.03 (< 0.04) ng/mL B-Natriuretic Peptide 50 (Less than 100) pg/mL - Radiology Data Radiology results reviewed: Yes I reviewed the patient's radiology results. ITS Impressions Chest X-Ray 12/30/18 16:22 IMPRESSION: No evidence of CHF D/ / Mich Zaidi MD / Mich Zaidi MD Interpreting Provider: Mich Zaidi MD - EKG Data EKG #1 EKG attestation: Yes I reviewed and interpreted this EKG. EKG shows normal: sinus rhythm Rate: normal Rhythm: NSR [place]/QRS: normal Interpretation: no acute changes, normal EKG
[2018-12-30 17:06] LABS: Basophils % 0.3 %; Eosinophils # 0.2 K/mcL (0.0-0.6); Eosinophils % 2.9 %; Hematocrit 32.3 % (35.3-44.9); Hemoglobin 9.6 g/dL (11.5-15.4); Immature Granulocytes % 0.3 % (0-4); Lymphocytes # 1.4 K/mcL (0.6-4.6); Lymphocytes % 22.4 %; Mean Corpuscular HGB Conc 29.7 g/dL (31.6-35.5); Mean Corpuscular Hemoglobin 24.7 pg (28.0-33.3); Mean Platelet Volume 10.7 fL (9.4-12.4); Monocytes # 0.5 K/mcL (0.0-1.3); Monocytes % 8.6 %; Platelet Count 347 K/mcL (140-400); Red Blood Count 3.89 M/mcL (3.82-4.97); Red Cell Distribution Width 16.8 % (11.5-14.5); Segmented Neutrophils % 65.5 %; White Blood Count 6.2 K/mcL (4.3-11.1)
[2018-12-30 17:24] LABS: BUN/Creatinine Ratio 14 (6-26); Blood Urea Nitrogen 11 mg/dL (8-23); Carbon Dioxide 36 mEq/L (23-29); Chloride 95 mEq/L (98-107); Glucose 206 mg/dL (70-105); Osmolality,Calculated 285 (280-300); Potassium 4.2 mEq/L (3.5-5.1); Sodium 135 mEq/L (136-145); eGFR For African Americans > 60 (> 60); eGFR For Non-African Americans > 60 (> 60)
[2018-12-30 17:30] LABS: Anisocytosis 1+ (Not Present); Platelet Estimate Normal (Normal)
[2018-12-30] MEDS ORDERED: *HR* OxyCODONE/APAP 10/325 TABLET PO ONE (18:28)
[2018-12-30] MEDS ORDERED: Naloxone 0.4 MG/ML INJ IVP PRN ×2 (19:26→19:53)
[2018-12-30] MEDS ORDERED: Nitroglycerin 0.4 MG TAB.SUBL SL PRN (19:53)
[2018-12-30] MEDS: tiZANidine 4 MG TABLET PO SCH (21:15)
[2018-12-30] MEDS: Aspirin Enteric Coated 81 MG Tablet PO SCH (21:15)
[2018-12-30] MEDS: *HR* OxyCODONE Immed Rel 15 MG TABLET PO SCH (21:15)
[2018-12-30] MEDS: Furosemide 20 MG TABLET PO SCH (21:15)
[2018-12-30] MEDS: Famotidine 20 MG TABLET PO SCH (21:15)
[2018-12-30] MEDS: Gabapentin 400 MG CAPSULE PO SCH (21:15)
[2018-12-31] MEDS: *HR* OxyCODONE/APAP 10/325 TABLET PO PRN ×2 (02:37→17:45)
[2018-12-31] MEDS: tiZANidine 4 MG TABLET PO SCH ×3 (06:07→22:00)
[2018-12-31] MEDS: Cholecalciferol (D-3) 1,000 UNIT (25MCG) TABLET PO SCH (09:27)
[2018-12-31] MEDS: predniSONE 20 MG TABLET PO SCH (09:27)
[2018-12-31] MEDS: *HR* OxyCODONE Immed Rel 15 MG TABLET PO SCH ×3 (09:27→22:00)
[2018-12-31] MEDS: Furosemide 20 MG TABLET PO SCH (09:27)
[2018-12-31] MEDS: Gabapentin 400 MG CAPSULE PO SCH ×3 (09:27→21:59)
[2018-12-31] MEDS: Famotidine 20 MG TABLET PO SCH ×2 (09:27→22:00)
--- NOTE | 2018-12-31 10:45 | Internal Med History&Physical ---
Date of Encounter: 12/31/18 Time of Encounter: 10:05 Assessment and Plan (1) Cellulitis Current visit: Yes Status: Acute She was given IV vancomycin in emergency room. IV Ancef will be started with lactobacillus. Qualifiers: Site of cellulitis: extremity Site of cellulitis of extremity: lower ext remity Laterality: unspecified laterality Qualified Code(s): L03.119 - Cellulitis of unspecified part of limb (2) Hyperglycemia Current visit: Yes Status: Acute Glucose has been elevated since February 2018 on lab checks. Hemoglobin A1c will be ordered. (3) Edema Current visit: Yes Status: Acute BN peptide was normal at 50 in emergency room. Neurontin dose will be reduced and IV diuretics will be ordered. Qualifiers: Edema type: unspecified Qualified Code(s): R60.9 - Edema, unspecified (4) Peripheral neuropathy Current visit: Yes Status: Acute Neurontin dose will reduced to lessen edema. Cymbalta can be increased as needed. Qualifiers: Peripheral neuropathy type: polyneuropathy, unspecified Qualified Code(s): G62.9 - Polyneuropathy, unspecified (5) Anemia Current visit: No Status: Chronic Anemia testing will be done. Qualifiers: Anemia type: iron deficiency Iron deficiency anemia type: unspecified iron deficiency Qualified Code(s): D50.9 - Iron deficiency anemia, unspecified (6) HTN (hypertension) Current visit: No Status: Chronic Blood pressure stable. Continue Lasix Qualifiers: Hypertension type: essential hypertension Qualified Code(s): I10 - Essential (primary) hypertension (7) RLS (restless legs syndrome) Current visit: Yes Status: Acute Continue Neurontin (reduced dose), Cymbalta, and order iron testing. Internal Medicine - H&P: HPI Chief complaint: Leg redness and drainage Admitted From: Emergency Dept Plans for Post Hospital Care: Home History of present illness: Ms. Mclean is a 73 year old female who came to emergency room stating she had redness in her legs for approximately one month. Over the past few days she reports there had been increased redness with fluid drainage observed. She had significant pain in the legs. She came to emergency room and was felt to have cellulitis. She was admitted to [facility] floor for ongoing care needs. Past Med Surg Social Fam HX - Past Medical History Medical history: asthma, COPD, coronary artery disease, dementia, GERD, hyperlipidemia, hypertension, other Additional medical history: neuropathy Psychiatric history: depression - Past Surgical History Surgical History: orthopedic, other Additional surgical history: foot surgery, back surgery 10 times - Social History Smoking Status: Former smoker Smokeless Tobacco Status: No Alcohol use: none Drug use: none - Family History Mother Living Status: Hx Family Cardiac Disorders: Yes Hx Family Cancer: Yes Internal Medicine - H&P: Meds Cholecalciferol (Vitamin D3) [Vitamin D3] 1,000 unit PO DAILY 06/04/17 [History] Duloxetine HCl [Cymbalta] 60 mg PO DAILY 06/04/17 [History] OxyCODONE/APAP 10/325 [Percocet 10/325 MG] 1 tab PO Q6HR PRN 06/04/17 [History] Ranitidine HCl [Acid Spike Driver] 150 mg PO BID 06/04/17 [History] Aspirin [Lo-Dose Aspirin EC] 81 mg PO Q48H #0 07/21/17 [Rx] Atorvastatin Calcium [Lipitor] 20 mg PO HS 03/20/18 [History] Gabapentin [Neurontin] 800 mg PO TID 03/20/18 [History] NALOXONE 4 MG Nasal [place] [Narcan] 4 mg NS AD 03/20/18 [History] Nitroglycerin [Nitrostat] 0.4 mg SL Q5M PRN MDD [id number] CALL 911 03/20/18 [History] Nortriptyline HCl 75 mg PO DAILY 03/20/18 [History] Omeprazole [PriLOSEC] 40 mg PO DAILY 03/20/18 [History] Tizanidine HCl 4 mg PO Q8H 03/20/18 [History] Docusate [Colace] 100 mg PO TID 12/30/18 [History] Furosemide [Lasix] 20 mg PO BID 12/30/18 [History] Memantine HCl 10 mg PO BID 12/30/18 [History] Oxycodone HCl [Roxybond] 30 mg PO TID 12/30/18 [History] Potassium Chloride [K-Tab ER] 10 meq PO 12/30/18 [History] PredniSONE [Deltasone] 20 mg PO DAILY 12/30/18 [History] Allergy/AdvReac Type Severity Reaction Status Date / Time pentazocine [From Talwin] AdvReac Vomiting Verified 03/20/18 09:07 All Systems PM: A 10-system review of systems was performed and is negative for pertinent findings except as documented above in the HPI. Review of systems: Review of systems from her June 2017 [facility] hospitalization were reviewed and revised as below. Gen.: Her weight is unchanged from February 2018 [facility] hospitalization at approximately 99 kg. Cardiovascular: She has history of hypertension but denies GA heart failure DVT or pulmonary embolus. She has had angioplasty/stent procedure but does not recall details. She reports she has had a heart valve surgery in the past but does not know details. Respiratory: She smoked from age [age] up to 2 packs per day. She has a diagnosis of COPD and wears oxygen 24/7 at home. She denies testing for ALEXIS GI: She denies disorders of her liver gallbladder or exocrine pancreas : She has had urinary tract infections in the past. She denies other kidney or bladder disorders Neurologic: She is been diagnosed with early dementia. She has neuropathy of uncertain etiology. She denies large distribution strokes or seizures. Endocrine: She denies diabetes or thyroid disease but has history of hyperlipidemia. She does not use medication at this time. She has restless leg syndrome. Hematology/oncology: She has had anemia in the past with iron deficiency diagnosed during her June 2017 [facility] hospitalization. She was started on oral ferrous sulfate with ascorbic acid at that time. Aspirin was reduced to 81 mg every other day but she states she now takes aspirin daily. She had hysterectomy for uterine cancer in the past which was curative. She denies other internal malignancies Psychiatric: She has depression but denies anxiety or other mental health issues Musk skeletal: She has DJD. She reports having 10 back surgeries and a foot surgery. She denies gout or other bone joint or muscle disorders. - Constitutional Vitals: Temp Pulse Resp BP Pulse Ox 97.5 F L 77 16 110/68 100 12/31/18 06:35 12/31/18 06:35 12/31/18 06:35 12/31/18 06:35 12/31/18 06:35 Exam: Gen.: She is a well-developed overweight female resting comfortably in bed who appears in minimal distress HEENT: Head is atraumatic and normocephalic. Eyes: EOMI. There is no scleral icterus. Mouth: Mucosa is moist. Neck: Supple and nontender. There is no thyromegaly or adenopathy noted. Heart: Regular without murmurs gallops or ectopics Lungs: No wheezes or crackles are heard. Abdomen: She has a large abdomen. It is nontender to palpation. Extremities: She has erythema of both lower legs. She has 1-2+ edema of the dorsum of feet and lower legs bilaterally. Dorsalis pedis and posterior tibial pulses are not palpable. She has a ruptured blister approximately 15 mm diameter on her right lower anterior lateral leg. There is no significant drainage at this time. Neurologic: Mental status: She is alert and talkative but a fair historian at best. She admits to memory loss and states she does not recall several details of her history. Cranial nerves: Smile is symmetric. Forehead wrinkles bilaterally. Tongue protrudes midline. EOMI. Motor: There is no pronator drift. Cerebellar: Finger to nose is intact bilaterally. Skin: Warm and dry with leg erythema as described above. Internal Med - H&P Results - Labs CBC & Chem 7: 12/30/18 16:40 12/30/18 16:40 Labs: Short CBC 12/30/18 Range/Units 16:40 WBC 6.2 (4.3-11.1) K/mcL Hgb 9.6 L (11.5-15.4) g/dL Hct 32.3 L (35.3-44.9) % Plt Count 347 (140-400) K/mcL Neutrophils # 4.0 (1.6-8.9) K/mcL BMP 12/30/18 16:40 Sodium 135 L Potassium 4.2 Chloride 95 L Carbon Dioxide 36 H BUN 11 Creatinine 0.78 Glucose 206 H Calcium 9.0 Cardiac Enzymes 12/30/18 Range/Units 16:40 Troponin I < 0.03 (< 0.04) ng/mL - Impressions ITS Impressions Chest X-Ray 12/30/18 16:22 IMPRESSION: No evidence of CHF D/ / Mich Zaidi MD / Mich Zaidi MD Interpreting Provider: Mich Zaidi MD - VTE Reasons for not Prescribing Prophylaxis: Treatment not Indicated - Low risk for VTE
[2018-12-31] MEDS: ceFAZolin 1,000 MG in Water for inj. (sterile) 10 ML IVP SCH ×2 (10:59→17:45)
[2018-12-31] MEDS: Furosemide 40 MG/4 ML VIAL IVP SCH ×2 (11:00→17:45)
[2018-12-31 11:05] LABS: Magnesium 1.9 mg/dL (1.6-2.6)
--- NOTE | 2018-12-31 15:58 | Electrocardiograph Report ---
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
[2018-12-31 18:11] LABS: Folate 6.6 ng/mL (3.0-16.0)
[2018-12-31 18:18] LABS: Estimated Average Glucose 163 mg/dl
[2018-12-31] MEDS: Lactobacillus 1 EACH CAP.SPRINK PO SCH (22:00)
[2019-01-01] MEDS: ceFAZolin 1,000 MG in Water for inj. (sterile) 10 ML IVP SCH ×3 (03:25→20:19)
[2019-01-01] MEDS: tiZANidine 4 MG TABLET PO SCH ×3 (06:24→22:21)
[2019-01-01] MEDS: *HR* Enoxaparin 40 MG/0.4 ML SYRINGE SQ SCH (06:24)
[2019-01-01] MEDS: *HR* OxyCODONE/APAP 10/325 TABLET PO PRN ×2 (06:27→22:24)
[2019-01-01] MEDS: Cholecalciferol (D-3) 1,000 UNIT (25MCG) TABLET PO SCH (08:59)
[2019-01-01] MEDS: Furosemide 40 MG/4 ML VIAL IVP SCH ×2 (08:59→17:17)
[2019-01-01] MEDS: Famotidine 20 MG TABLET PO SCH ×2 (08:59→20:21)
[2019-01-01] MEDS: predniSONE 20 MG TABLET PO SCH (08:59)
[2019-01-01] MEDS: Gabapentin 400 MG CAPSULE PO SCH ×3 (08:59→20:21)
[2019-01-01] MEDS: Lactobacillus 1 EACH CAP.SPRINK PO SCH ×2 (08:59→20:20)
--- NOTE | 2019-01-01 10:38 | Internal Med Progress Note ---
Date of Encounter: 01/01/19 Time of Encounter: 10:24 - Assessment and plan (1) Cellulitis Current Visit: Yes Status: Acute Assessment and plan: January 01. Continue IV Ancef with lactobacillus. Qualifiers: Site of cellulitis: extremity Site of cellulitis of extremity: lower extremity Laterality: unspecified laterality Qualified Code(s): L03.119 - Cellulitis of unspecified part of limb (2) Hyperglycemia Current Visit: Yes Status: Acute Assessment and plan: January 01. Hemoglobin A1c elevated at 7.3%. Prednisone will be discontinued. Diabetic teaching will be done. (3) Edema Current Visit: Yes Status: Acute Assessment and plan: January 01. Discontinue prednisone. Continue IV Lasix. Qualifiers: Edema type: unspecified Qualified Code(s): R60.9 - Edema, unspecified (4) Peripheral neuropathy Current Visit: Yes Status: Acute Assessment and plan: January 01. Continue Pamelor, Cymbalta and gabapentin Qualifiers: Peripheral neuropathy type: polyneuropathy, unspecified Qualified Code(s): G62.9 - Polyneuropathy, unspecified (5) Anemia Current Visit: No Status: Chronic Assessment and plan: . Hemoglobin has decreased to 9.6. Anemia testing showed iron 23, transferrin saturation 6%, transferrin 296, ferritin 15, B12 538, and folate 6.6. She will receive iron dextran infusion. Qualifiers: Anemia type: iron deficiency Iron deficiency anemia type: unspecified iron deficiency Qualified Code(s): D50.9 - Iron deficiency anemia, unspecified (6) HTN (hypertension) Current Visit: No Status: Chronic Assessment and plan: January 01. Blood pressure borderline low. Continue IV Lasix for edema. Qualifiers: Hypertension type: essential hypertension Qualified Code(s): I10 - Esse ntial (primary) hypertension (7) RLS (restless legs syndrome) Current Visit: Yes Status: Acute Assessment and plan: January 01. She will receive iron dextran infusion. Continue Cymbalta, gabapentin, and nortriptyline. - Subjective Interval history: January 01. She has no new complaints. She still reports pain in her legs. - Constitutional Vitals: Temp Pulse Resp BP Pulse Ox 98.1 F 72 16 90/58 98 01/01/19 07:36 01/01/19 07:36 01/01/19 07:36 01/01/19 07:36 01/01/19 07:36 Exam: She is resting comfortably in bed and appears in no acute distress. There is minimal change in the erythema and edema. I reviewed her medications and lab results. Internal Medicine: Result - Labs CBC & Chem 7: 12/30/18 16:40 12/30/18 16:40 - VTE Reasons for not Prescribing Prophylaxis: Treatment not Indicated - Low risk for VTE Consult Discharge Plan - Plan Referrals: Macrina Pacheco DO [Primary Care Provider] - 1 week
[2019-01-01] MEDS ORDERED: IRON DEXTRAN COMPLEX IVPB ONE (13:00)
[2019-01-01] MEDS ORDERED: SODIUM CHLORIDE 0.9% IVPB ONE (13:00)
[2019-01-01] MEDS: *HR* OxyCODONE Immed Rel 15 MG TABLET PO SCH ×3 (13:17→20:19)
[2019-01-01] MEDS ORDERED: Dextrose Gel 15 GM/37.5 ML TUBE PO PRN ×2 (16:16)
[2019-01-01] MEDS ORDERED: *HR* Dextrose 50 % in Water (Syg) 50 ML SYRINGE IVP PRN (16:16)
[2019-01-01] MEDS ORDERED: D5% in Water 1,000 ML IVC PRN (16:16)
[2019-01-01] MEDS: Insulin LISPRO 300 UNITS/3 ML VIAL SQ SCH ×2 (17:16→20:21)
[2019-01-01] MEDS: Aspirin Enteric Coated 81 MG Tablet PO SCH (20:19)
[2019-01-02] MEDS: ceFAZolin 1,000 MG in Water for inj. (sterile) 10 ML IVP SCH ×3 (03:40→19:16)
[2019-01-02 05:58] LABS: Basophils % 0.4 %; Eosinophils # 0.1 K/mcL (0.0-0.6); Eosinophils % 1.7 %; Hematocrit 31.4 % (35.3-44.9); Hemoglobin 9.8 g/dL (11.5-15.4); Immature Granulocytes % 0.2 % (0-4); Lymphocytes # 1.8 K/mcL (0.6-4.6); Lymphocytes % 38.1 %; Mean Corpuscular HGB Conc 31.2 g/dL (31.6-35.5); Mean Corpuscular Hemoglobin 25.2 pg (28.0-33.3); Mean Corpuscular Volume 80.7 fL (83.0-100.0); Mean Platelet Volume 9.2 fL (9.4-12.4); Monocytes # 0.5 K/mcL (0.0-1.3); Monocytes % 11.2 %; Neutrophils # 2.3 K/mcL (1.6-8.9); Platelet Count 351 K/mcL (140-400); Red Blood Count 3.89 M/mcL (3.82-4.97); Red Cell Distribution Width 16.6 % (11.5-14.5); Segmented Neutrophils % 48.4 %; White Blood Count 4.8 K/mcL (4.3-11.1)
[2019-01-02 06:20] LABS: BUN/Creatinine Ratio 18 (6-26); Blood Urea Nitrogen 13 mg/dL (8-23); Calcium 9.3 mg/dL (8.6-10.3); Carbon Dioxide 39 mEq/L (23-29); Chloride 95 mEq/L (98-107); Glucose 89 mg/dL (70-105); Osmolality,Calculated 284 (280-300); Potassium 3.4 mEq/L (3.5-5.1); Sodium 137 mEq/L (136-145); eGFR For African Americans > 60 (> 60); eGFR For Non-African Americans > 60 (> 60)
[2019-01-02] MEDS: tiZANidine 4 MG TABLET PO SCH ×3 (06:27→23:22)
[2019-01-02] MEDS: *HR* Enoxaparin 40 MG/0.4 ML SYRINGE SQ SCH (06:27)
[2019-01-02] MEDS: Insulin LISPRO 300 UNITS/3 ML VIAL SQ SCH ×4 (07:22→21:08)
[2019-01-02] MEDS: Gabapentin 400 MG CAPSULE PO SCH ×3 (08:51→21:18)
[2019-01-02] MEDS: Furosemide 40 MG/4 ML VIAL IVP SCH ×2 (08:51→17:02)
[2019-01-02] MEDS: *HR* OxyCODONE Immed Rel 15 MG TABLET PO SCH ×3 (08:52→21:19)
[2019-01-02] MEDS: Famotidine 20 MG TABLET PO SCH ×2 (08:52→21:19)
[2019-01-02] MEDS: Lactobacillus 1 EACH CAP.SPRINK PO SCH ×2 (08:52→21:19)
[2019-01-02] MEDS: Cholecalciferol (D-3) 1,000 UNIT (25MCG) TABLET PO SCH (08:53)
--- NOTE | 2019-01-02 10:35 | Internal Med Progress Note ---
Date of Encounter: 01/02/19 Time of Encounter: 10:24 - Assessment and plan (1) Cellulitis Current Visit: Yes Status: Acute Assessment and plan: January 01. Continue IV Ancef with lactobacillus. Qualifiers: Site of cellulitis: extremity Site of cellulitis of extremity: lower extremity Laterality: unspecified laterality Qualified Code(s): L03.119 - Cellulitis of unspecified part of limb (2) Hyperglycemia Current Visit: Yes Status: Acute Assessment and plan: January 01. Hemoglobin A1c elevated at 7.3%. Prednisone will be discontinued. Diabetic teaching will be done. (3) Edema Current Visit: Yes Status: Acute Assessment and plan: January 01. Discontinue prednisone. Continue IV Lasix. Qualifiers: Edema type: unspecified Qualified Code(s): R60.9 - Edema, unspecified (4) Peripheral neuropathy Current Visit: Yes Status: Acute Assessment and plan: January 01. Continue Pamelor, Cymbalta and gabapentin Qualifiers: Peripheral neuropathy type: polyneuropathy, unspecified Qualified Code(s): G62.9 - Polyneuropathy, unspecified (5) Anemia Current Visit: No Status: Chronic Assessment and plan: January 01. Hemoglobin has decreased to 9.6. Anemia testing showed iron 23, transferrin saturation 6%, transferrin 296, ferritin 15, B12 538, and folate 6.6. She will receive iron dextran infusion. January 02. Hemoglobin slightly improved to 9.8. Start ferrous sulfate with ascorbic acid in a.m. Qualifiers: Anemia type: iron deficiency Iron deficiency anemia type: unspecified iron deficiency Qualified Code(s): D50.9 - Iron deficiency anemia, unspecified (6) HTN (hypertension) Current Visit: No Status: Chronic Assessment and plan: January 01. Blood pressure borderline low. Continue IV Lasix for edema. Qualifiers: Hypertension type: essential hypertension Qualified Code(s): I10 - Essent ial (primary) hypertension (7) RLS (restless legs syndrome) Current Visit: Yes Status: Acute Assessment and plan: January 01. She will receive iron dextran infusion. Continue Cymbalta, gabapentin, and nortriptyline. - Subjective Interval history: January 01. She has no new complaints. She still reports pain in her legs. January 02. She has no new complaints except a headache. She states she "hurts all over". - Constitutional Vitals: Temp Pulse Resp BP Pulse Ox 98.4 F 85 18 108/53 99 01/02/19 04:18 01/02/19 04:18 01/02/19 04:18 01/02/19 04:18 01/02/19 04:18 Exam: She is resting comfortably in bed and appears in no significant distress. Her affect is overall cheerful. There appears slight decrease in edema. Erythema is minimally changed. I reviewed her medications and lab results. Internal Medicine: Result - Labs CBC & Chem 7: 01/02/19 05:38 01/02/19 05:38 Labs: Short CBC 01/02/19 Range/Units 05:38 WBC 4.8 (4.3-11.1) K/mcL Hgb 9.8 L (11.5-15.4) g/dL Hct 31.4 L (35.3-44.9) % Plt Count 351 (140-400) K/mcL Neutrophils # 2.3 (1.6-8.9) K/mcL BMP 01/02/19 05:38 Sodium 137 Potassium 3.4 L Chloride 95 L Carbon Dioxide 39 H BUN 13 Creatinine 0.71 Glucose 89 Calcium 9.3 - VTE Reasons for not Prescribing Prophylaxis: Treatment not Indicated - Low risk for VTE Consult Discharge Plan - Plan Referrals: Macrina Pacheco DO [Primary Care Provider] - 1 week
[2019-01-02] MEDS: *HR* OxyCODONE/APAP 10/325 TABLET PO PRN (19:20)
[2019-01-03] MEDS: ceFAZolin 1,000 MG in Water for inj. (sterile) 10 ML IVP SCH (03:10)
[2019-01-03] MEDS: *HR* Enoxaparin 40 MG/0.4 ML SYRINGE SQ SCH (04:50)
[2019-01-03] MEDS: tiZANidine 4 MG TABLET PO SCH (06:45)
[2019-01-03 06:49] VITALS: BP 90/57
[2019-01-03 06:55] LABS: Basophils % 0.4 %; Eosinophils # 0.3 K/mcL (0.0-0.6); Eosinophils % 5.5 %; Hematocrit 30.2 % (35.3-44.9); Hemoglobin 9.4 g/dL (11.5-15.4); Immature Granulocytes % 0.2 % (0-4); Lymphocytes # 1.4 K/mcL (0.6-4.6); Mean Corpuscular HGB Conc 31.1 g/dL (31.6-35.5); Mean Corpuscular Hemoglobin 25.5 pg (28.0-33.3); Mean Corpuscular Volume 81.8 fL (83.0-100.0); Mean Platelet Volume 9.2 fL (9.4-12.4); Monocytes # 0.6 K/mcL (0.0-1.3); Monocytes % 12.7 %; Neutrophils # 2.3 K/mcL (1.6-8.9); Platelet Count 338 K/mcL (140-400); Red Blood Count 3.69 M/mcL (3.82-4.97); Red Cell Distribution Width 16.8 % (11.5-14.5); Segmented Neutrophils % 50.2 %; White Blood Count 4.6 K/mcL (4.3-11.1)
[2019-01-03 07:15] LABS: Alanine Aminotransferase 7 Units/L (7-52); Albumin 3.1 g/dL (3.5-5.7); Albumin/Globulin Ratio 1.1 (1.1-2.2); Alkaline Phosphatase 87 Units/L (34-104); Aspartate Amino Transferase 14 Units/L (13-39); BUN/Creatinine Ratio 15 (6-26); Bilirubin,Total 0.2 mg/dL (0.3-1.0); Blood Urea Nitrogen 13 mg/dL (8-23); Calcium 9.3 mg/dL (8.6-10.3); Carbon Dioxide 39 mEq/L (23-29); Chloride 96 mEq/L (98-107); Globulin 2.8 g/dL (2.4-3.5); Glucose 99 mg/dL (70-105); Magnesium 2.1 mg/dL (1.6-2.6); Osmolality,Calculated 288 (280-300); Potassium 3.6 mEq/L (3.5-5.1); Sodium 139 mEq/L (136-145); Total Protein 5.9 g/dL (6.4-8.9); eGFR For African Americans > 60 (> 60); eGFR For Non-African Americans > 60 (> 60)
[2019-01-03] MEDS: Insulin LISPRO 300 UNITS/3 ML VIAL SQ SCH (07:18)
[2019-01-03] MEDS: Famotidine 20 MG TABLET PO SCH (08:21)
[2019-01-03] MEDS: Cholecalciferol (D-3) 1,000 UNIT (25MCG) TABLET PO SCH (08:21)
[2019-01-03] MEDS: Gabapentin 400 MG CAPSULE PO SCH (08:21)
[2019-01-03] MEDS: Lactobacillus 1 EACH CAP.SPRINK PO SCH (08:22)
[2019-01-03] MEDS: Furosemide 40 MG/4 ML VIAL IVP SCH (08:26)
[2019-01-03] MEDS: *HR* OxyCODONE Immed Rel 15 MG TABLET PO SCH (10:16)
--- NOTE | 2019-01-03 10:24 | Discharge Summary ---
Orders not resulted at time of discharge: Pending orders 12/30/18 16:50 Culture,Blood [] Stat Date of Encounter: 01/03/19 Time of Encounter: 10:05 - Discharge Diagnosis (1) Cellulitis Priority: Primary Status: Acute Qualifiers: Site of cellulitis: extremity Site of cellulitis of extremity: lower extremity Laterality: unspecified laterality Qualified Code(s): L03.119 - Cellulitis of unspecified part of limb (2) Hyperglycemia Priority: Secondary Status: Acute (3) Edema Priority: Secondary Status: Acute Qualifiers: Edema type: unspecified Qualified Code(s): R60.9 - Edema, unspecified (4) Peripheral neuropathy Priority: Secondary Status: Chronic Qualifiers: Peripheral neuropathy type: polyneuropathy, unspecified Qualified Code(s): G62.9 - Polyneuropathy, unspecified (5) Anemia Priority: Secondary Status: Chronic Qualifiers: Anemia type: iron deficiency Iron deficiency anemia type: unspecified iron deficiency Qualified Code(s): D50.9 - Iron deficiency anemia, unspecified (6) HTN (hypertension) Priority: Secondary Status: Chronic Qualifiers: Hypertension type: essential hypertension Qualified Code(s): I10 - Essential (primary) hypertension (7) RLS (restless legs syndrome) Priority: Secondary Status: Chronic Hospital course: Ms. Mclean is a 73 year old female who came to emergency room stating she had redness in her legs for approximately one month. Over the past few days she reports there had been increased redness with fluid drainage observed. She had significant pain in the legs. She came to emergency room and was felt to have cellulitis. She was admitted to [facility] for ongoing care needs. Initial orders were written by the emergency room physician. I saw her on December 31 and performed a history and physical. She was given a dose of IV vancomycin in emergency room. IV Ancef with lactobacillus was started. There was slight decrease in erythema. IV Lasix was given and edema gradually lessened. She stated on January 03 that she felt slightly improved but still weak and felt she would benefit from swing bed stay with therapy. She will have PT and OT evaluations/intervention in swing bed. Antibiotics/probiotic will not be continued. Hemoglobin A1c returned slightly elevated at 7.3%. Prednisone was discontinued and Accu-Cheks improved. Neurontin dose was decreased and IV diuretics were given. She had slight decrease in edema and erythema. Anemia testing showed iron 23, transferrin saturation 6%, transferrin 296, ferritin 15, B12 538, and folate 6.6. She was given iron dextran infusion. Vitamin D level returned significantly low at 10. Her vitamin D dose will be increased to 3000 international units daily. On January 03 she was stable for discharge to swing bed for ongoing care needs. - Time Spent with Patient Total time spent providing and/or coordinating discharge services: - Discharge Medications Prescriptions: New Furosemide [Lasix] 40 mg IVP BIDDIURETIC vial Enoxaparin [Lovenox] 40 mg SQ 0600 syringe Gabapentin [Neurontin] 400 mg PO TID capsule Potassium Chloride 20 meq PO BID tab.er.prt Cholecalciferol (D-3) [Vitamin D] 3,000 unit PO DAILY tablet Continued NALOXONE 4 MG Nasal [place] [Narcan] 4 mg NS AD Tizanidine HCl 4 mg PO Q8H Nitroglycerin [Nitrostat] 0.4 mg SL Q5M PRN MDD [id number] CALL 911 PRN Reason: Chest Pain Nortriptyline HCl 75 mg PO DAILY Omeprazole [PriLOSEC] 40 mg PO DAILY Ranitidine HCl [Acid Automation Control Integrator] 150 mg PO BID OxyCODONE/APAP 10/325 [Percocet 10/325 MG] 1 tab PO Q6HR PRN PRN Reason: Pain Duloxetine HCl [Cymbalta] 60 mg PO DAILY Aspirin [Lo-Dose Aspirin EC] 81 mg PO Q48H #0 Docusate [Colace] 100 mg PO TID Memantine HCl 10 mg PO BID Oxycodone HCl [Roxybond] 30 mg PO TID Discontinued Gabapentin [Neurontin] 800 mg PO TID Atorvastatin Calcium [Lipitor] 20 mg PO HS Cholecalciferol (Vitamin D3) [Vitamin D3] 1,000 unit PO DAILY Furosemide [Lasix] 20 mg PO BID Potassium Chloride [K-Tab ER] 10 meq PO PredniSONE [Deltasone] 20 mg PO DAILY Home Medications: Duloxetine HCl [Cymbalta] 60 mg PO DAILY 06/04/17 [History] OxyCODONE/APAP 10/325 [Percocet 10/325 MG] 1 tab PO Q6HR PRN 06/04/17 [History] Ranitidine HCl [Acid Automation Control Integrator] 150 mg PO BID 06/04/17 [History] Aspirin [Lo-Dose Aspirin EC] 81 mg PO Q48H #0 07/21/17 [Rx] NALOXONE 4 MG Nasal [place] [Narcan] 4 mg NS AD 03/20/18 [History] Nitroglycerin [Nitrostat] 0.4 mg SL Q5M PRN MDD [id number] CALL 911 03/20/18 [History] Nortriptyline HCl 75 mg PO DAILY 03/20/18 [History] Omeprazole [PriLOSEC] 40 mg PO DAILY 03/20/18 [History] Tizanidine HCl 4 mg PO Q8H 03/20/18 [History] Docusate [Colace] 100 mg PO TID 12/30/18 [History] Memantine HCl 10 mg PO BID 12/30/18 [History] Oxycodone HCl [Roxybond] 30 mg PO TID 12/30/18 [History] Cholecalciferol (D-3) [Vitamin D] 3,000 unit PO DAILY tablet 01/03/19 [Rx] Enoxaparin [Lovenox] 40 mg SQ 0600 syringe 01/03/19 [Rx] Furosemide [Lasix] 40 mg IVP BIDDIURETIC vial 01/03/19 [Rx] Gabapentin [Neurontin] 400 mg PO TID capsule 01/03/19 [Rx] Potassium Chloride 20 meq PO BID tab.er.prt 01/03/19 [Rx] Allergies/Adverse Reactions: Allergy/AdvReac Type Severity Reaction Status Date / Time pentazocine [From Efraín] AdvReac Vomiting Verified 03/20/18 09:07 Date of admission: 12/31/18 10:28 Primary care physician: Macrina Pacheco DO Consults: 01/01/19 10:45 Consult to Diabetes Education [CONS] Routine Comment: Reason for Consult: Newly diagnosed DM 2 - Constitutional Vitals: Temp Pulse Resp BP Pulse Ox 98.0 F 90 18 90/57 98 01/03/19 06:46 01/03/19 06:46 01/03/19 06:46 01/03/19 06:46 01/03/19 06:46 - Patient Status Disposition: Transfer Hospital Swing Bed Condition: Fair - Discharge Instructions - Diet and Activity Activity: as per physical therapy Diet: diabetic diet, low fat, low cholesterol, low salt diet - VTE Reasons for not Prescribing Prophylaxis: Treatment not Indicated - Low risk for VTE
== END 2019-01-03 11:07 | disposition other institution (70) | DRG 603 ==
LOC: EMEROOPIK 15:50 → INPPIK 15:50
PROVIDERS: ADMIT Internal Medicine; ATTEND Internal Medicine

== ENCOUNTER 2019-01-03 13:04 | Inpatient (IN) ==
[2019-01-03] MEDS ORDERED: Nitroglycerin 0.4 MG TAB.SUBL SL PRN (13:12)
[2019-01-03] MEDS ORDERED: Naloxone 0.4 MG/ML INJ IVP PRN (13:15)
[2019-01-03] MEDS ORDERED: *HR* Dextrose 50 % in Water (Syg) 50 ML SYRINGE IVP PRN (13:18)
[2019-01-03] MEDS ORDERED: Dextrose Gel 15 GM/37.5 ML TUBE PO PRN ×2 (13:18)
[2019-01-03] MEDS ORDERED: D5% in Water 1,000 ML IVC PRN (13:18)
[2019-01-03] MEDS ORDERED: *HR* Dextrose 50 % in Water (Vial) 50 ML VIAL IVP PRN (13:45)
[2019-01-03] MEDS: Gabapentin 400 MG CAPSULE PO SCH ×2 (13:46→21:10)
[2019-01-03] MEDS: *HR* OxyCODONE Immed Rel 15 MG TABLET PO SCH ×2 (13:46→21:10)
[2019-01-03] MEDS: Insulin LISPRO 300 UNITS/3 ML VIAL SQ SCH ×2 (16:35→20:30)
[2019-01-03] MEDS: Furosemide 40 MG/4 ML VIAL IVP SCH (16:40)
[2019-01-03] MEDS: Aspirin Enteric Coated 81 MG Tablet PO SCH (16:40)
[2019-01-03] MEDS: tiZANidine 4 MG TABLET PO SCH (16:41)
[2019-01-03] MEDS: Famotidine 20 MG TABLET PO SCH (21:10)
[2019-01-04] MEDS: tiZANidine 4 MG TABLET PO SCH ×3 (01:57→15:52)
[2019-01-04] MEDS: *HR* OxyCODONE/APAP 10/325 TABLET PO PRN ×3 (01:57→20:00)
[2019-01-04] MEDS: *HR* Enoxaparin 40 MG/0.4 ML SYRINGE SQ SCH (07:04)
[2019-01-04] MEDS: Furosemide 40 MG/4 ML VIAL IVP SCH ×2 (08:53→17:39)
--- NOTE | 2019-01-04 08:53 | Internal Med Progress Note ---
Date of Encounter: 01/04/19 Time of Encounter: 08:45 - Assessment and plan (1) Cellulitis Current Visit: No Status: Acute Assessment and plan: January 04. Antibiotics have been discontinued. Continue to monitor. Qualifiers: Site of cellulitis: extremity Site of cellulitis of extremity: lower extremity Laterality: unspecified laterality Qualified Code(s): L03.119 - Cellulitis of unspecified part of limb (2) Anemia Current Visit: No Status: Chronic Assessment and plan: January 04. Anemia testing showed iron 23, transferrin saturation 6%, transferrin 296, ferritin 15, B12 538, and folate 6.6. She was given iron dextran infusion in acute-care. Qualifiers: Anemia type: iron deficiency Iron deficiency anemia type: unspecified iron deficiency Qualified Code(s): D50.9 - Iron deficiency anemia, unspecified (3) HTN (hypertension) Current Visit: No Status: Chronic Assessment and plan: January 04. Diet-controlled Qualifiers: Hypertension type: essential hypertension Qualified Code(s): I10 - Essential (primary) hypertension (4) Hyperglycemia Current Visit: No Status: Acute Assessment and plan: January 04. Hemoglobin A1c returned slightly elevated 7.3%. Prednisone was discontinued and Accu-Cheks improved. Continue to monitor. (5) Edema Current Visit: No Status: Acute Assessment and plan: January 04. Continue IV Lasix. Qualifiers: Edema type: unspecified Qualified Code(s): R60.9 - Edema, unspecified (6) RLS (restless legs syndrome) Current Visit: No Status: Chronic Assessment and plan: January 04. Improved after iron dextran infusion. Start ferrous sulfate with ascorbic acid. Continue low-dose gabapentin. (7) Low vitamin D level Current Visit: Yes Status: Acute Assessment and plan: January 04. Vitamin D level returned low at 10. Vitamin D dose was increased to 3000 international units daily. - Subjective Interval history: January 04. She was hospitalized at [facility] acute-care December 30- after presenting with increased redness and edema of her legs. She was treated for cellulitis with IV Ancef and lactobacillus. IV Lasix was given and there was gradual improvement in edema. She was given iron dextran infusion for anemia. Vitamin D dose was increased. PT and OT evaluations/interventions were done and she was discharged to swing bed for ongoing care needs. She has no new complaints today. - Constitutional Vitals: Temp Pulse Resp BP Pulse Ox 97.9 F 76 20 111/64 96 01/04/19 07:25 01/04/19 07:25 01/04/19 07:25 01/04/19 07:25 01/04/19 07:25 Exam: She is resting comfortably in a chair at bedside and appears in no acute distress. Her affect is cheerful. Edema is minimally changed in her lower legs. There is decreased erythema. I reviewed her medications and lab results. Consult Discharge Plan - Plan Referrals: NONE,PCP [Primary Care Provider] - 1 week
[2019-01-04] MEDS: Famotidine 20 MG TABLET PO SCH ×2 (08:54→21:50)
[2019-01-04] MEDS: *HR* OxyCODONE Immed Rel 15 MG TABLET PO SCH ×3 (08:54→21:50)
[2019-01-04] MEDS: Gabapentin 400 MG CAPSULE PO SCH ×3 (08:54→21:49)
[2019-01-04] MEDS: Cholecalciferol (D-3) 1,000 UNIT TABLET PO SCH (08:55)
[2019-01-04] MEDS: Insulin LISPRO 300 UNITS/3 ML VIAL SQ SCH ×4 (08:55→21:53)
[2019-01-04] MEDS: Ammonium Lactate 30 APPL/225 GM BOTTLE TP SCH (10:22)
[2019-01-05] MEDS: tiZANidine 4 MG TABLET PO SCH ×3 (00:29→15:36)
[2019-01-05] MEDS: *HR* OxyCODONE/APAP 10/325 TABLET PO PRN ×3 (02:11→20:04)
[2019-01-05] MEDS: Ascorbic Acid 500 MG TABLET PO SCH (05:58)
[2019-01-05] MEDS: *HR* Enoxaparin 40 MG/0.4 ML SYRINGE SQ SCH (05:59)
[2019-01-05] MEDS: Furosemide 40 MG/4 ML VIAL IVP SCH ×2 (08:37→17:14)
[2019-01-05] MEDS: Gabapentin 400 MG CAPSULE PO SCH ×3 (08:38→20:01)
[2019-01-05] MEDS: *HR* OxyCODONE Immed Rel 15 MG TABLET PO SCH ×3 (08:38→21:22)
[2019-01-05] MEDS: Famotidine 20 MG TABLET PO SCH ×2 (08:38→20:04)
[2019-01-05] MEDS: Cholecalciferol (D-3) 1,000 UNIT TABLET PO SCH (08:38)
[2019-01-05] MEDS: Insulin LISPRO 300 UNITS/3 ML VIAL SQ SCH ×4 (08:39→19:42)
[2019-01-05] MEDS: Ammonium Lactate 30 APPL/225 GM BOTTLE TP SCH (09:20)
[2019-01-05] MEDS: Aspirin Enteric Coated 81 MG Tablet PO SCH (17:15)
[2019-01-06] MEDS: tiZANidine 4 MG TABLET PO SCH ×3 (02:06→16:56)
[2019-01-06] MEDS: *HR* Enoxaparin 40 MG/0.4 ML SYRINGE SQ SCH (05:56)
[2019-01-06] MEDS: Ascorbic Acid 500 MG TABLET PO SCH (05:56)
[2019-01-06] MEDS: *HR* OxyCODONE/APAP 10/325 TABLET PO PRN ×2 (05:56→13:28)
[2019-01-06] MEDS: *HR* OxyCODONE Immed Rel 15 MG TABLET PO SCH ×3 (08:36→21:20)
[2019-01-06] MEDS: Furosemide 40 MG/4 ML VIAL IVP SCH (08:36)
[2019-01-06] MEDS: Gabapentin 400 MG CAPSULE PO SCH ×3 (08:37→21:20)
[2019-01-06] MEDS: Insulin LISPRO 300 UNITS/3 ML VIAL SQ SCH ×4 (08:38→21:21)
[2019-01-06] MEDS: Famotidine 20 MG TABLET PO SCH ×2 (08:38→21:20)
[2019-01-06] MEDS: Cholecalciferol (D-3) 1,000 UNIT TABLET PO SCH (08:39)
[2019-01-06] MEDS: Ammonium Lactate 30 APPL/225 GM BOTTLE TP SCH (08:50)
--- NOTE | 2019-01-06 15:12 | Internal Med Progress Note ---
Date of Encounter: 01/06/19 Time of Encounter: 15:05 - Assessment and plan (1) Cellulitis Current Visit: No Status: Acute Assessment and plan: January 04. Antibiotics have been discontinued. Continue to monitor. Qualifiers: Site of cellulitis: extremity Site of cellulitis of extremity: lower extremity Laterality: unspecified laterality Qualified Code(s): L03.119 - Cellulitis of unspecified part of limb (2) Anemia Current Visit: No Status: Chronic Assessment and plan: January 04. Anemia testing showed iron 23, transferrin saturation 6%, transferrin 296, ferritin 15, B12 538, and folate 6.6. She was given iron dextran infusion in acute-care. January 06. Recheck labs in a.m. Qualifiers: Anemia type: iron deficiency Iron deficiency anemia type: unspecified iron deficiency Qualified Code(s): D50.9 - Iron deficiency anemia, unspecified (3) HTN (hypertension) Current Visit: No Status: Chronic Assessment and plan: January 04. Diet-controlled Qualifiers: Hypertension type: essential hypertension Qualified Code(s): I10 - Essential (primary) hypertension (4) Hyperglycemia Current Visit: No Status: Acute Assessment and plan: January 04. Hemoglobin A1c returned slightly elevated 7.3%. Prednisone was discontinued and Accu-Cheks improved. Continue to monitor. (5) Edema Current Visit: No Status: Acute Assessment and plan: January 04. Continue IV Lasix. January 06. Discontinue IV Lasix and change to oral Bumex. Qualifiers: Edema type: unspecified Qualified Code(s): R60.9 - Edema, unspecified (6) RLS (restless legs syndrome) Current Visit: No Status: Chronic Assessment and plan: January 04. Improved after iron dextran infusion. Start ferrous sulfate with ascorbic acid. Continue low-dose gabapentin. (7) Low vitamin D level Current Visit: Yes Status: Acute Assessment and plan: January 04. Vitamin D level returned low at 10. Vitamin D dose was increased to 3000 international units daily. - Subjective Interval history: January 04. She was hospitalized at [facility] acute-care December 30- after presenting with increased redness and edema of her legs. She was treated for cellulitis with IV Ancef and lactobacillus. IV Lasix was given and there was gradual improvement in edema. She was given iron dextran infusion for anemia. Vitamin D dose was increased. PT and OT evaluations/interventions were done and she was discharged to swing bed for ongoing care needs. She has no new complaints today. January 06. She has no new complaints and feels better. - Constitutional Vitals: Temp Pulse Resp BP Pulse Ox 98.2 F 83 18 115/76 94 01/06/19 06:49 01/06/19 06:49 01/06/19 06:49 01/06/19 06:49 01/06/19 06:49 Exam: She is resting comfortably in bed and appears in no acute distress. Her affect is bright and cheerful. Extremities show decrease in the erythema and edema. I reviewed her medications and lab results. Consult Discharge Plan - Plan Referrals: NONE,PCP [Primary Care Provider] - 1 week
[2019-01-06] MEDS: Bumetanide 1 MG TABLET PO SCH (16:56)
[2019-01-06] MEDS ORDERED: Mag Hydrox/Al Hydrox/Simeth 30 ML UDC PO PRN (20:17)
[2019-01-07] MEDS: *HR* OxyCODONE/APAP 10/325 TABLET PO PRN ×3 (00:58→19:43)
[2019-01-07] MEDS: tiZANidine 4 MG TABLET PO SCH ×3 (00:58→15:32)
[2019-01-07] MEDS: *HR* Enoxaparin 40 MG/0.4 ML SYRINGE SQ SCH (06:11)
[2019-01-07] MEDS: Ascorbic Acid 500 MG TABLET PO SCH (06:11)
[2019-01-07 06:29] LABS: Basophils % 0.5 %; Eosinophils # 0.3 K/mcL (0.0-0.6); Eosinophils % 4.9 %; Hematocrit 32.2 % (35.3-44.9); Hemoglobin 9.8 g/dL (11.5-15.4); Immature Granulocytes % 0.9 % (0-4); Lymphocytes # 1.7 K/mcL (0.6-4.6); Mean Corpuscular HGB Conc 30.4 g/dL (31.6-35.5); Mean Corpuscular Hemoglobin 25.3 pg (28.0-33.3); Mean Corpuscular Volume 83.2 fL (83.0-100.0); Mean Platelet Volume 9.5 fL (9.4-12.4); Monocytes # 0.7 K/mcL (0.0-1.3); Monocytes % 12.5 %; Neutrophils # 2.8 K/mcL (1.6-8.9); Platelet Count 297 K/mcL (140-400); Red Blood Count 3.87 M/mcL (3.82-4.97); Red Cell Distribution Width 17.8 % (11.5-14.5); Segmented Neutrophils % 50.2 %; White Blood Count 5.5 K/mcL (4.3-11.1)
[2019-01-07 06:54] LABS: BUN/Creatinine Ratio 27 (6-26); Blood Urea Nitrogen 20 mg/dL (8-23); Calcium 9.5 mg/dL (8.6-10.3); Carbon Dioxide 32 mEq/L (23-29); Chloride 97 mEq/L (98-107); Glucose 120 mg/dL (70-105); Osmolality,Calculated 284 (280-300); Potassium 4.4 mEq/L (3.5-5.1); Sodium 135 mEq/L (136-145); eGFR For African Americans > 60 (> 60); eGFR For Non-African Americans > 60 (> 60)
[2019-01-07] MEDS: Cholecalciferol (D-3) 1,000 UNIT TABLET PO SCH (08:35)
[2019-01-07] MEDS: Bumetanide 1 MG TABLET PO SCH ×2 (08:35→16:31)
[2019-01-07] MEDS: *HR* OxyCODONE Immed Rel 15 MG TABLET PO SCH ×3 (08:36→22:13)
[2019-01-07] MEDS: Famotidine 20 MG TABLET PO SCH ×2 (08:36→19:43)
[2019-01-07] MEDS: Gabapentin 400 MG CAPSULE PO SCH ×3 (08:37→19:43)
[2019-01-07] MEDS: Insulin LISPRO 300 UNITS/3 ML VIAL SQ SCH ×4 (09:37→20:03)
[2019-01-07] MEDS: Aspirin Enteric Coated 81 MG Tablet PO SCH (16:31)
[2019-01-08] MEDS: tiZANidine 4 MG TABLET PO SCH ×3 (01:02→15:51)
[2019-01-08] MEDS: Ascorbic Acid 500 MG TABLET PO SCH (06:13)
[2019-01-08] MEDS: *HR* Enoxaparin 40 MG/0.4 ML SYRINGE SQ SCH (06:13)
[2019-01-08] MEDS: *HR* OxyCODONE/APAP 10/325 TABLET PO PRN ×3 (06:13→19:47)
[2019-01-08] MEDS: Insulin LISPRO 300 UNITS/3 ML VIAL SQ SCH ×4 (08:21→19:48)
[2019-01-08] MEDS: *HR* OxyCODONE Immed Rel 15 MG TABLET PO SCH ×3 (08:27→22:12)
[2019-01-08] MEDS: Gabapentin 400 MG CAPSULE PO SCH ×3 (08:28→19:46)
[2019-01-08] MEDS: Bumetanide 1 MG TABLET PO SCH ×2 (08:28→15:51)
[2019-01-08] MEDS: Ammonium Lactate 30 APPL/225 GM BOTTLE TP SCH (08:28)
[2019-01-08] MEDS: Famotidine 20 MG TABLET PO SCH ×2 (08:28→19:46)
[2019-01-08] MEDS: Cholecalciferol (D-3) 1,000 UNIT TABLET PO SCH (08:29)
--- NOTE | 2019-01-08 14:52 | Internal Med Progress Note ---
Date of Encounter: 01/08/19 Time of Encounter: 14:45 - Assessment and plan (1) Cellulitis Current Visit: No Status: Acute Assessment and plan: January 04. Antibiotics have been discontinued. Continue to monitor. Qualifiers: Site of cellulitis: extremity Site of cellulitis of extremity: lower extremity Laterality: unspecified laterality Qualified Code(s): L03.119 - Cellulitis of unspecified part of limb (2) Anemia Current Visit: No Status: Chronic Assessment and plan: January 04. Anemia testing showed iron 23, transferrin saturation 6%, transferrin 296, ferritin 15, B12 538, and folate 6.6. She was given iron dextran infusion in acute-care. January 06. Recheck labs in a.m. January 08. Hemoglobin slightly improved to 9.8. Continue ferrous sulfate and ascorbic acid. Qualifiers: Anemia type: iron deficiency Iron deficiency anemia type: unspecified iron deficiency Qualified Code(s): D50.9 - Iron deficiency anemia, unspecified (3) HTN (hypertension) Current Visit: No Status: Chronic Assessment and plan: January 04. Diet-controlled Qualifiers: Hypertension type: essential hypertension Qualified Code(s): I10 - Essential (primary) hypertension (4) Hyperglycemia Current Visit: No Status: Acute Assessment and plan: January 04. Hemoglobin A1c returned slightly elevated 7.3%. Prednisone was discontinued and Accu-Cheks improved. Continue to monitor. January 08. Accu-Cheks satisfactory. Continue to monitor. (5) Edema Current Visit: No Status: Acute Assessment and plan: January 04. Continue IV Lasix. January 06. Discontinue IV Lasix and change to oral Bumex. January 08. Minimal edema now. Continue Bumex. Qualifiers: Edema type: unspecified Qualified Code(s): R60.9 - Edema, unspecified (6) RLS (restless legs syndrome) Current Visit: No Status: Chronic Assessment and plan: January 04. Improved after iron dextran infusion. Start ferrous sulfate with ascorbic acid. Continue low-dose gabapentin. (7) Low vitamin D level Current Visit: Yes Status: Acute Assessment and plan: January 04. Vitamin D level returned low at 10. Vitamin D dose was increased to 3000 international units daily. - Subjective Interval history: January 04. She was hospitalized at [facility] acute-care December 30- after presenting wi th increased redness and edema of her legs. She was treated for cellulitis with IV Ancef and lactobacillus. IV Lasix was given and there was gradual improvement in edema. She was given iron dextran infusion for anemia. Vitamin D dose was increased. PT and OT evaluations/interventions were done and she was discharged to swing bed for ongoing care needs. She has no new complaints today. January 06. She has no new complaints and feels better. January 08. She has no new complaints. - Constitutional Vitals: Temp Pulse Resp BP Pulse Ox 98.3 F 86 18 152/68 93 01/08/19 08:36 01/08/19 08:36 01/08/19 08:36 01/08/19 08:36 01/08/19 08:36 Exam: She is resting comfortably in bed and appears in no acute distress. Her affect is bright and cheerful. Her lower leg shows slight decrease in erythema and edema. I reviewed her medications and lab results. Internal Medicine: Result - Labs CBC & Chem 7: 01/07/19 05:48 01/07/19 05:48 Consult Discharge Plan - Plan Referrals: NONE,PCP [Primary Care Provider] - 1 week
[2019-01-09] MEDS: tiZANidine 4 MG TABLET PO SCH ×4 (00:55→22:58)
[2019-01-09] MEDS: *HR* OxyCODONE/APAP 10/325 TABLET PO PRN ×3 (04:23→20:08)
[2019-01-09] MEDS: *HR* Enoxaparin 40 MG/0.4 ML SYRINGE SQ SCH (06:07)
[2019-01-09] MEDS: Ascorbic Acid 500 MG TABLET PO SCH (06:07)
[2019-01-09] MEDS: *HR* OxyCODONE Immed Rel 15 MG TABLET PO SCH ×3 (09:12→22:59)
[2019-01-09] MEDS: Insulin LISPRO 300 UNITS/3 ML VIAL SQ SCH ×4 (09:25→20:08)
[2019-01-09] MEDS: Famotidine 20 MG TABLET PO SCH ×2 (10:21→20:07)
[2019-01-09] MEDS: Gabapentin 400 MG CAPSULE PO SCH ×3 (10:22→20:08)
[2019-01-09] MEDS: Cholecalciferol (D-3) 1,000 UNIT TABLET PO SCH (10:22)
[2019-01-09] MEDS: Bumetanide 1 MG TABLET PO SCH ×2 (10:22→16:06)
[2019-01-09] MEDS: Aspirin Enteric Coated 81 MG Tablet PO SCH (18:05)
[2019-01-10] MEDS: *HR* OxyCODONE/APAP 10/325 TABLET PO PRN ×2 (02:16→10:16)
[2019-01-10] MEDS: *HR* Enoxaparin 40 MG/0.4 ML SYRINGE SQ SCH (06:27)
[2019-01-10] MEDS: Ascorbic Acid 500 MG TABLET PO SCH (06:27)
[2019-01-10] MEDS: Insulin LISPRO 300 UNITS/3 ML VIAL SQ SCH (08:15)
[2019-01-10 08:24] VITALS: BP 136/71
[2019-01-10] MEDS: Bumetanide 1 MG TABLET PO SCH (08:26)
[2019-01-10] MEDS: tiZANidine 4 MG TABLET PO SCH (08:26)
[2019-01-10] MEDS: Gabapentin 400 MG CAPSULE PO SCH (08:27)
[2019-01-10] MEDS: Famotidine 20 MG TABLET PO SCH (08:27)
[2019-01-10] MEDS: *HR* OxyCODONE Immed Rel 15 MG TABLET PO SCH (08:27)
[2019-01-10] MEDS: Cholecalciferol (D-3) 1,000 UNIT TABLET PO SCH (08:27)
[2019-01-10] MEDS: Ammonium Lactate 30 APPL/225 GM BOTTLE TP SCH (08:28)
--- NOTE | 2019-01-10 10:07 | Discharge Summary ---
Date of Encounter: 01/10/19 Time of Encounter: 10:00 - Discharge Diagnosis (1) Cellulitis Priority: Primary Status: Acute Qualifiers: Site of cellulitis: extremity Site of cellulitis of extremity: lower extremity Laterality: unspecified laterality Qualified Code(s): L03.119 - Cellulitis of unspecified part of limb (2) Anemia Priority: Secondary Status: Chronic Qualifiers: Anemia type: iron deficiency Iron deficiency anemia type: unspecified iron deficiency Qualified Code(s): D50.9 - Iron deficiency anemia, unspecified (3) HTN (hypertension) Priority: Secondary Status: Chronic Qualifiers: Hypertension type: essential hypertension Qualified Code(s): I10 - Essential (primary) hypertension (4) Edema Priority: Secondary Status: Acute Qualifiers: Edema type: unspecified Qualified Code(s): R60.9 - Edema, unspecified (5) RLS (restless legs syndrome) Priority: Secondary Status: Chronic (6) Low vitamin D level Priority: Secondary Status: Acute (7) DM type 2 (diabetes mellitus, type 2) Priority: Secondary Status: Acute Qualifiers: 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 Mclean is a 73 year old female who was hospitalized at [facility] acute-care December 30- after presenting with increased redness and edema of her legs. She was treated for cellulitis with IV Ancef and lactobacillus. IV Lasix was given and there was gradual improvement in edema. She was given iron dextran infusion for anemia. Vitamin D dose was increased. PT and OT evaluations/interventions were done and she was discharged to swing bed for ongoing care needs. There was gradual slight improvement in the edema and erythema of her legs. I encouraged her to keep her legs elevated while at rest at discharge. She will continue with Bumex instead of Lasix at discharge. Hemoglobin was stable at 9.8 on 01/07/2019. She will continue oral ferrous s ulfate with ascorbic acid at discharge. Her PCP can continue to monitor. Hemoglobin A1c returned slightly elevated at 7.3% during acute care stay. Accu- Cheks were satisfactorily controlled during her acute care in swing bed stay and medication was not prescribed. Her PCP can continue to monitor. RLS symptoms lessened slightly after iron dextran infusion. Gabapentin dose was reduced to 400 mg 3 times a day in acute-care and she will remain on the lower dose at discharge. Vitamin D dose was increased to 3000 international units daily for low vitamin D level. This will be continued at discharge. She will follow with her PCP Macrina Pacheco D.O. within 1 week. Home health services will be ordered at discharge. - Time Spent with Patient Total time spent providing and/or coordinating discharge services: - Discharge Medications Prescriptions: New Ammonium Lactate [Amlactin] 1 appl TP Q48H #1 bottle Bumetanide [Bumex] 1 mg PO BIDDIURETIC #60 tablet Ferrous Sulfate 325 mg PO DAILY@0630 #30 tablet Ascorbic Acid [Vitamin C] 500 mg PO DAILY@0630 #30 tablet Continued NALOXONE 4 MG Nasal [place] [Narcan] 4 mg NS AD Tizanidine HCl 4 mg PO Q8H Nitroglycerin [Nitrostat] 0.4 mg SL Q5M PRN MDD [id number] CALL 911 PRN Reason: Chest Pain Nortriptyline HCl 75 mg PO DAILY Ranitidine HCl [Acid Personal Injury Legal Assistant] 150 mg PO BID OxyCODONE/APAP 10/325 [Percocet 10/325 MG] 1 tab PO Q6HR PRN PRN Reason: Pain Duloxetine HCl [Cymbalta] 60 mg PO DAILY Aspirin [Lo-Dose Aspirin EC] 81 mg PO Q48H #0 Docusate [Colace] 100 mg PO TID Memantine HCl 10 mg PO BID Oxycodone HCl [Roxybond] 30 mg PO TID Enoxaparin [Lovenox] 40 mg SQ 0600 syringe Gabapentin [Neurontin] 400 mg PO TID capsule Potassium Chloride 20 meq PO BID #60 tab.er.prt Cholecalciferol (D-3) [Vitamin D] 3,000 unit PO DAILY #90 tablet Discontinued Omeprazole [PriLOSEC] 40 mg PO DAILY Furosemide [Lasix] 40 mg IVP BIDDIURETIC vial Home Medications: Duloxetine HCl [Cymbalta] 60 mg PO DAILY 06/04/17 [History] OxyCODONE/APAP 10/325 [Percocet 10/325 MG] 1 tab PO Q6HR PRN 06/04/17 [History] Ranitidine HCl [Acid Personal Injury Legal Assistant] 150 mg PO BID 06/04/17 [History] Aspirin [Lo-Dose Aspirin EC] 81 mg PO Q48H #0 07/21/17 [Rx] NALOXONE 4 MG Nasal [place] [Narcan] 4 mg NS AD 03/20/18 [History] Nitroglycerin [Nitrostat] 0.4 mg SL Q5M PRN MDD [id number] CALL 911 03/20/18 [History] Nortriptyline HCl 75 mg PO DAILY 03/20/18 [History] Tizanidine HCl 4 mg PO Q8H 03/20/18 [History] Docusate [Colace] 100 mg PO TID 12/30/18 [History] Memantine HCl 10 mg PO BID 12/30/18 [History] Oxycodone HCl [Roxybond] 30 mg PO TID 12/30/18 [History] Enoxaparin [Lovenox] 40 mg SQ 0600 syringe 01/03/19 [Rx] Gabapentin [Neurontin] 400 mg PO TID capsule 01/03/19 [Rx] Ammonium Lactate [Amlactin] 1 appl TP Q48H #1 bottle 01/10/19 [Rx] Ascorbic Acid [Vitamin C] 500 mg PO DAILY@0630 #30 tablet 01/10/19 [Rx] Bumetanide [Bumex] 1 mg PO BIDDIURETIC #60 tablet 01/10/19 [Rx] Cholecalciferol (D-3) [Vitamin D] 3,000 unit PO DAILY #90 tablet 01/10/19 [Rx] Ferrous Sulfate 325 mg PO DAILY@0630 #30 tablet 01/10/19 [Rx] Potassium Chloride 20 meq PO BID #60 tab.er.prt 01/10/19 [Rx] Allergies/Adverse Reactions: Allergy/AdvReac Type Severity Reaction Status Date / Time pentazocine [From [place]] AdvReac Vomiting Verified 03/20/18 09:07 Date of admission: 01/03/19 13:08 Primary care physician: Macrina Pacheco D.O. Consults: 01/03/19 13:20 Consult to Occupational Therapy [CONS] Routine Comment: Evaluate, develop, and implement plan of care Reason for Consult: Evaluate, develop, and implement plan of care Does patient have active BEDREST order?: No Is patient medically & hemodynamically stable?: Yes Patient assessed for mobility or mobilized this visit?: No Consult to Physical Therapy [CONS] Routine Comment: Evaluate, develop, and implement plan of care Reason for Consult: Evaluate, develop, and implement plan of care Does patient have active BEDREST order?: No Is patient medically & hemodynamically stable?: Yes Patient assessed for mobility or mobilized this visit?: No Consult to Mold Mechanic [CONS] Routine Reason for SW Consult: Discharge Planning - Constitutional Vitals: Temp Pulse Resp BP Pulse Ox 97.5 F L 77 16 136/71 99 01/10/19 08:24 01/10/19 08:24 01/10/19 07:08 01/10/19 08:24 01/10/19 08:24 - Patient Status Disposition: Home Health Service - Discharge Instructions Follow Up With: Macrina Pacheco DO [Non-Partnered Physician] - 1 week - Diet and Activity Activity: as per physical therapy Diet: diabetic diet
--- NOTE | 2019-01-10 10:24 | Physician Discharge Referral ---
Home Health/Hosp Referral Info Transfer to: Home Health Attending Provider: Hoang Provider in Charge Post Discharge: PCP (Macrina Pacheco D.O.) - Diagnosis (1) Cellulitis Priority: Primary Status: Acute (2) Anemia Priority: Secondary Status: Chronic (3) HTN (hypertension) Priority: Secondary Status: Chronic (4) Edema Priority: Secondary Status: Acute (5) RLS (restless legs syndrome) Priority: Secondary Status: Chronic (6) Low vitamin D level Priority: Secondary Status: Acute (7) DM type 2 (diabetes mellitus, type 2) Priority: Secondary Status: Acute - Respiratory Orders Smoking Cessation: Smoking cessation has been advised. For more information, call the [place] Tobacco Quit Line at 0-433-QLXA-NOW. - Diet/Nutrition Diet/Nutrition Orders: No Concentrated Sweets - Activity Activity Orders: Walker - Services Needed Following services are medically necessary services: Nursing, Home Health Aide, Physical Therapy, Occupational Therapy - Transfer Medications Prescriptions: Ammonium Lactate [Amlactin] 1 appl TP Q48H #1 bottle Bumetanide [Bumex] 1 mg PO BIDDIURETIC #60 tablet Ferrous Sulfate 325 mg PO DAILY@0630 #30 tablet Potassium Chloride 20 meq PO BID #60 tab.er.prt Ascorbic Acid [Vitamin C] 500 mg PO DAILY@0630 #30 tablet Cholecalciferol (D-3) [Vitamin D] 3,000 unit PO DAILY #90 tablet Home Medications: Duloxetine HCl [Cymbalta] 60 mg PO DAILY 06/04/17 [History] OxyCODONE/APAP 10/325 [Percocet 10/325 MG] 1 tab PO Q6HR PRN 06/04/17 [History] Ranitidine HCl [Acid Mill Tender Warm Up] 150 mg PO BID 06/04/17 [History] Aspirin [Lo-Dose Aspirin EC] 81 mg PO Q48H #0 07/21/17 [Rx] NALOXONE 4 MG Nasal [place] [Narcan] 4 mg NS AD 03/20/18 [History] Nitroglycerin [Nitrostat] 0.4 mg SL Q5M PRN MDD [id number] CALL 911 03/20/18 [History] Nortriptyline HCl 75 mg PO DAILY 03/20/18 [History] Tizanidine HCl 4 mg PO Q8H 03/20/18 [History] Docusate [Colace] 100 mg PO TID 12/30/18 [History] Memantine HCl 10 mg PO BID 12/30/18 [History] Oxycodone HCl [Roxybond] 30 mg PO TID 12/30/18 [History] Enoxaparin [Lovenox] 40 mg SQ 0600 syringe 01/03/19 [Rx] Gabapentin [Neurontin] 400 mg PO TID capsule 01/03/19 [Rx] Ammonium Lactate [Amlactin] 1 appl TP Q48H #1 bottle 01/10/19 [Rx] Ascorbic Acid [Vitamin C] 500 mg PO DAILY@0630 #30 tablet 01/10/19 [Rx] Bumetanide [Bumex] 1 mg PO BIDDIURETIC #60 tablet 01/10/19 [Rx] Cholecalciferol (D-3) [Vitamin D] 3,000 unit PO DAILY #90 tablet 01/10/19 [Rx] Ferrous Sulfate 325 mg PO DAILY@0630 #30 tablet 01/10/19 [Rx] Potassium Chloride 20 meq PO BID #60 tab.er.prt 01/10/19 [Rx] Allergies/Adverse Reactions: Allergy/AdvReac Type Severity Reaction Status Date / Time pentazocine [From Talwin] AdvReac Vomiting Verified 03/20/18 09:07 Certification: Further, I certify that my clinical findings support that this patient is homebound (i.e. absences from home require considerable and taxing effort and are for medical reasons or episcopalian services or infrequently or short duration when for other reasons) because: Homebound Reason: Leaving home requires considerable and taxing effort due to condition (Impaired walking ability, DJD, anemia) Attestation: My signature below is to certify that this patient is under my care and that I, or nurse practitioner, or a physician's sound assistant working with me, has a [id number] encounter with this patient.
== END 2019-01-10 13:01 | disposition home health service (06) | DRG 603 ==
LOC: INPPIK 13:08
PROVIDERS: ADMIT Internal Medicine; ATTEND Internal Medicine

== ENCOUNTER 2021-12-17 09:23 | Observation (INO) ==
[2021-12-17] MEDS ORDERED: methylPREDNISolone 125 MG/2 ML VIAL IVP ONE (09:30)
[2021-12-17] MEDS ORDERED: Ipratropium/Albuterol Neb 3 ML IH ONE (09:30)
[2021-12-17 10:19] LABS: Basophils % 0.4 %; Eosinophils # 0.2 K/mcL (0.0-0.6); Eosinophils % 3.3 %; Hematocrit 33.9 % (35.3-44.9); Hemoglobin 10.3 g/dL (11.5-15.4); Immature Granulocytes % 0.3 % (0-4); Lymphocytes # 1.7 K/mcL (0.6-4.6); Lymphocytes % 24.4 %; Mean Corpuscular HGB Conc 30.4 g/dL (31.6-35.5); Mean Corpuscular Hemoglobin 29.1 pg (28.0-33.3); Mean Corpuscular Volume 95.8 fL (83.0-100.0); Mean Platelet Volume 9.3 fL (9.4-12.4); Monocytes # 0.7 K/mcL (0.0-1.3); Monocytes % 9.6 %; Neutrophils # 4.2 K/mcL (1.6-8.9); Platelet Count 288 K/mcL (140-400); Red Blood Count 3.54 M/mcL (3.82-4.97); Red Cell Distribution Width 13.2 % (11.5-14.5); White Blood Count 6.8 K/mcL (4.3-11.1)
[2021-12-17 10:26] LABS: INR 0.9; Prothrombin Time 10.5 Seconds (9.4-12.1)
[2021-12-17 10:29] LABS: Activated Partial Thrombo Time 26.8 Seconds (26.0-36.0)
[2021-12-17 10:34] LABS: Alanine Aminotransferase 8 Units/L (7-52); Albumin 3.1 g/dL (3.5-5.7); Albumin/Globulin Ratio 1.2 (1.1-2.2); Alkaline Phosphatase 88 Units/L (34-104); Aspartate Amino Transferase 11 Units/L (13-39); BUN/Creatinine Ratio 13 (6-26); Bilirubin,Direct 0.1 mg/dL (0.0-0.2); Bilirubin,Indirect 0.3 mg/dL (0.0-1.0); Bilirubin,Total 0.4 mg/dL (0.3-1.0); Blood Urea Nitrogen 10 mg/dL (8-23); Calcium 8.7 mg/dL (8.6-10.3); Carbon Dioxide 35 mEq/L (23-29); Chloride 96 mEq/L (98-107); Globulin 2.6 g/dL (2.4-3.5); Glucose 155 mg/dL (70-105); Osmolality,Calculated 282 (280-300); Potassium 4.3 mEq/L (3.5-5.1); Sodium 135 mEq/L (136-145); Total Protein 5.7 g/dL (6.4-8.9); eGFR For African Americans > 60 (> 60); eGFR For Non-African Americans > 60 (> 60)
[2021-12-17 10:38] LABS: Troponin I < 0.03 ng/mL (< 0.04)
[2021-12-17] MEDS ORDERED: *HR* OxyCODONE Immed Rel 15 MG TABLET PO ONE (10:45)
[2021-12-17] MEDS ORDERED: Naloxone 0.4 MG/ML INJ IVP PRN (11:56)
[2021-12-17] MEDS ORDERED: Nitroglycerin 0.4 MG TAB.SUBL SL PRN (11:57)
[2021-12-17] MEDS ORDERED: *HR* OxyCODONE Immed Rel 15 MG TABLET PO PRN (11:57)
[2021-12-17] MEDS: Budesonide/Formoterol 160/4.5 1 PUFF INH IH SCH ×2 (13:40→20:26)
[2021-12-17] MEDS: MethylPREDNISolone 40 MG/ML VIAL IVP SCH ×3 (16:06→21:10)
[2021-12-17] MEDS: tiZANidine 4 MG TABLET PO SCH ×2 (16:06→21:10)
[2021-12-17] MEDS: Gabapentin 400 MG CAPSULE PO SCH ×3 (16:06→21:09)
[2021-12-17] MEDS: Ammonium Lactate 30 APPL/225 GM BOTTLE TP SCH (16:25)
[2021-12-17] MEDS: rOPINIRole 1 MG TABLET PO SCH (21:10)
[2021-12-17] MEDS: *HR* OxyCODONE Immed Rel 15 MG TABLET PO PRN (21:16)
[2021-12-17] MEDS: Benzonatate 100 MG CAPSULE PO PRN (21:39)
[2021-12-18] MEDS: *HR* OxyCODONE Immed Rel 15 MG TABLET PO PRN ×3 (03:28→18:20)
[2021-12-18] MEDS: tiZANidine 4 MG TABLET PO SCH ×3 (03:28→20:49)
[2021-12-18] MEDS: MethylPREDNISolone 40 MG/ML VIAL IVP SCH ×3 (03:28→18:20)
[2021-12-18 07:33] LABS: Hematocrit 34.5 % (35.3-44.9); Hemoglobin 10.6 g/dL (11.5-15.4); Immature Granulocytes % 0.5 % (0-4); Lymphocytes # 0.6 K/mcL (0.6-4.6); Lymphocytes % 14.6 %; Mean Corpuscular HGB Conc 30.7 g/dL (31.6-35.5); Mean Corpuscular Hemoglobin 28.8 pg (28.0-33.3); Mean Corpuscular Volume 93.8 fL (83.0-100.0); Mean Platelet Volume 9.6 fL (9.4-12.4); Monocytes # 0.2 K/mcL (0.0-1.3); Monocytes % 3.5 %; Neutrophils # 3.5 K/mcL (1.6-8.9); Platelet Count 299 K/mcL (140-400); Red Blood Count 3.68 M/mcL (3.82-4.97); Segmented Neutrophils % 81.4 %; White Blood Count 4.3 K/mcL (4.3-11.1)
[2021-12-18] MEDS: Gabapentin 400 MG CAPSULE PO SCH ×4 (08:54→20:50)
[2021-12-18] MEDS: Loratadine 10 MG TABLET PO SCH (08:54)
[2021-12-18] MEDS: Furosemide 40 MG TABLET PO SCH (08:54)
[2021-12-18] MEDS: Spironolactone 25 MG TABLET PO SCH (08:54)
[2021-12-18] MEDS: rOPINIRole 1 MG TABLET PO SCH ×2 (08:54→20:50)
[2021-12-18] MEDS: Baclofen 10 MG TABLET PO SCH (08:54)
[2021-12-18 09:01] LABS: Alanine Aminotransferase 8 Units/L (7-52); Albumin 3.2 g/dL (3.5-5.7); Albumin/Globulin Ratio 1.1 (1.1-2.2); Alkaline Phosphatase 88 Units/L (34-104); Aspartate Amino Transferase 9 Units/L (13-39); BUN/Creatinine Ratio 24 (6-26); Bilirubin,Total 0.3 mg/dL (0.3-1.0); Blood Urea Nitrogen 14 mg/dL (8-23); Calcium 9.1 mg/dL (8.6-10.3); Carbon Dioxide 35 mEq/L (23-29); Chloride 97 mEq/L (98-107); Chol/HDL Ratio 2.8 (0-4.9); Cholesterol 168 mg/dL (< 200); Globulin 2.8 g/dL (2.4-3.5); Glucose 178 mg/dL (70-105); HDL Cholesterol 61 mg/dL (40-59); LDL Cholesterol,Calculated 95 mg/dL (< 100); Magnesium 2.1 mg/dL (1.6-2.6); Osmolality,Calculated 287 (280-300); Potassium 5.1 mEq/L (3.5-5.1); Sodium 136 mEq/L (136-145); Triglycerides 58 mg/dL (< 150); eGFR For African Americans > 60 (> 60); eGFR For Non-African Americans > 60 (> 60)
[2021-12-18] MEDS: Budesonide/Formoterol 160/4.5 1 PUFF INH IH SCH ×2 (09:19→20:41)
[2021-12-18] MEDS: GuaiFENesin/Codeine Oral Soln 5 ML UDC PO PRN (12:30)
[2021-12-18] MEDS: Benzonatate 100 MG CAPSULE PO PRN (18:29)
[2021-12-19] MEDS: *HR* OxyCODONE Immed Rel 15 MG TABLET PO PRN ×4 (00:07→21:40)
[2021-12-19] MEDS: MethylPREDNISolone 40 MG/ML VIAL IVP SCH ×5 (00:11→21:42)
[2021-12-19] MEDS: GuaiFENesin/Codeine Oral Soln 5 ML UDC PO PRN (00:11)
[2021-12-19] MEDS: tiZANidine 4 MG TABLET PO SCH ×3 (05:10→19:52)
[2021-12-19] MEDS: *HR* Enoxaparin 40 MG/0.4 ML SYRINGE SQ SCH (05:11)
[2021-12-19 07:24] LABS: Hematocrit 33.7 % (35.3-44.9); Hemoglobin 10.2 g/dL (11.5-15.4); Immature Granulocytes % 0.7 % (0-4); Lymphocytes # 0.7 K/mcL (0.6-4.6); Lymphocytes % 9.3 %; Mean Corpuscular HGB Conc 30.3 g/dL (31.6-35.5); Mean Corpuscular Hemoglobin 28.7 pg (28.0-33.3); Mean Corpuscular Volume 94.7 fL (83.0-100.0); Mean Platelet Volume 9.7 fL (9.4-12.4); Monocytes # 0.4 K/mcL (0.0-1.3); Monocytes % 5.5 %; Platelet Count 358 K/mcL (140-400); Red Blood Count 3.56 M/mcL (3.82-4.97); Red Cell Distribution Width 13.4 % (11.5-14.5); Segmented Neutrophils % 84.5 %; White Blood Count 7.1 K/mcL (4.3-11.1)
[2021-12-19 08:01] LABS: BUN/Creatinine Ratio 30 (6-26); Blood Urea Nitrogen 19 mg/dL (8-23); Carbon Dioxide 32 mEq/L (23-29); Chloride 97 mEq/L (98-107); Glucose 255 mg/dL (70-105); Osmolality,Calculated 289 (280-300); Potassium 5.1 mEq/L (3.5-5.1); Sodium 134 mEq/L (136-145); eGFR For African Americans > 60 (> 60); eGFR For Non-African Americans > 60 (> 60)
[2021-12-19] MEDS: Budesonide/Formoterol 160/4.5 1 PUFF INH IH SCH ×2 (09:02→21:16)
[2021-12-19] MEDS: Baclofen 10 MG TABLET PO SCH (09:36)
[2021-12-19] MEDS: Gabapentin 400 MG CAPSULE PO SCH ×4 (09:36→19:51)
[2021-12-19] MEDS: rOPINIRole 1 MG TABLET PO SCH ×2 (09:36→19:51)
[2021-12-19] MEDS: Benzonatate 100 MG CAPSULE PO PRN (09:37)
[2021-12-19] MEDS: Spironolactone 25 MG TABLET PO SCH (09:37)
[2021-12-19] MEDS: Loratadine 10 MG TABLET PO SCH (09:37)
[2021-12-19] MEDS: Furosemide 40 MG TABLET PO SCH (09:37)
[2021-12-19] MEDS: Ammonium Lactate 30 APPL/225 GM BOTTLE TP SCH (11:13)
[2021-12-19] MEDS ORDERED: Cholecalciferol (D-3) 1,000 UNIT (25MCG) TABLET PO SCH (11:57)
[2021-12-20] MEDS: tiZANidine 4 MG TABLET PO SCH ×3 (03:18→19:39)
[2021-12-20] MEDS: MethylPREDNISolone 40 MG/ML VIAL IVP SCH ×4 (03:18→23:04)
[2021-12-20] MEDS: *HR* OxyCODONE Immed Rel 15 MG TABLET PO PRN ×3 (03:18→19:39)
[2021-12-20] MEDS: *HR* Enoxaparin 40 MG/0.4 ML SYRINGE SQ SCH (03:19)
[2021-12-20] MEDS: rOPINIRole 1 MG TABLET PO SCH ×2 (08:21→19:40)
[2021-12-20] MEDS: Spironolactone 25 MG TABLET PO SCH (08:21)
[2021-12-20] MEDS: Gabapentin 400 MG CAPSULE PO SCH ×4 (08:22→19:39)
[2021-12-20] MEDS: Baclofen 10 MG TABLET PO SCH (08:22)
[2021-12-20] MEDS: Furosemide 40 MG TABLET PO SCH (08:22)
[2021-12-20] MEDS: Loratadine 10 MG TABLET PO SCH (08:22)
[2021-12-20] MEDS: Budesonide/Formoterol 160/4.5 1 PUFF INH IH SCH ×2 (09:03→22:29)
[2021-12-21] MEDS: *HR* OxyCODONE Immed Rel 15 MG TABLET PO PRN ×3 (02:47→16:50)
[2021-12-21] MEDS: tiZANidine 4 MG TABLET PO SCH ×2 (02:47→13:12)
[2021-12-21] MEDS: MethylPREDNISolone 40 MG/ML VIAL IVP SCH ×2 (02:53→09:09)
[2021-12-21] MEDS: *HR* Enoxaparin 40 MG/0.4 ML SYRINGE SQ SCH (05:26)
[2021-12-21 06:48] VITALS: BP 114/68; PULSE 81; TEMP 97.8
[2021-12-21 08:04] LABS: Basophils % 0.2 %; Hematocrit 38.3 % (35.3-44.9); Hemoglobin 11.5 g/dL (11.5-15.4); Immature Granulocytes % 0.8 % (0-4); Lymphocytes # 0.5 K/mcL (0.6-4.6); Lymphocytes % 7.9 %; Mean Corpuscular Hemoglobin 28.7 pg (28.0-33.3); Mean Corpuscular Volume 95.5 fL (83.0-100.0); Mean Platelet Volume 9.5 fL (9.4-12.4); Monocytes # 0.3 K/mcL (0.0-1.3); Monocytes % 4.9 %; Neutrophils # 5.3 K/mcL (1.6-8.9); Platelet Count 361 K/mcL (140-400); Red Blood Count 4.01 M/mcL (3.82-4.97); Red Cell Distribution Width 13.2 % (11.5-14.5); Segmented Neutrophils % 86.2 %; White Blood Count 6.1 K/mcL (4.3-11.1)
[2021-12-21 08:17] LABS: BUN/Creatinine Ratio 33 (6-26); Blood Urea Nitrogen 26 mg/dL (8-23); Calcium 8.8 mg/dL (8.6-10.3); Carbon Dioxide 29 mEq/L (23-29); Chloride 94 mEq/L (98-107); Glucose 286 mg/dL (70-105); Osmolality,Calculated 287 (280-300); Potassium 4.4 mEq/L (3.5-5.1); Sodium 131 mEq/L (136-145); eGFR For African Americans > 60 (> 60); eGFR For Non-African Americans > 60 (> 60)
[2021-12-21] MEDS: Furosemide 40 MG TABLET PO SCH (09:07)
[2021-12-21] MEDS: Gabapentin 400 MG CAPSULE PO SCH ×3 (09:07→16:49)
[2021-12-21] MEDS: rOPINIRole 1 MG TABLET PO SCH (09:07)
[2021-12-21] MEDS: Baclofen 10 MG TABLET PO SCH (09:08)
[2021-12-21] MEDS: Spironolactone 25 MG TABLET PO SCH (09:08)
[2021-12-21] MEDS: Loratadine 10 MG TABLET PO SCH (09:08)
[2021-12-21] MEDS: Budesonide/Formoterol 160/4.5 1 PUFF INH IH SCH (09:10)
[2021-12-21 09:17] VITALS: RESP 18; O2SAT 99
[2021-12-21] MEDS: Ammonium Lactate 30 APPL/225 GM BOTTLE TP SCH (13:12)
[2021-12-21 18:42] LABS: Influenza A PCR Negative (Negative); Influenza B PCR Negative (Negative); Resp. Syncytial Virus PCR Negative (Negative)
[2021-12-21 18:49] LABS: SARS-CoV-2 by PCR (In House) Negative (Negative)
== END 2021-12-21 18:30 ==
LOC: EMEROOPIK 09:23 → INPPIK 09:23
PROVIDERS: ADMIT Internal Medicine; ATTEND Internal Medicine